=== PATIENT | female | born 1960 | race Two or more races ===

== ENCOUNTER 2024-05-13 13:09 | Outpatient (REF) | payer MEDICAID, SELFPAY ==
[2024-05-13 14:03] LABS: MANUAL DIFF FLAG NO
[2024-05-13 14:09] LABS: Venous Blood Gas Refer to POC result
[2024-05-13 14:10] LABS: VBG Base Excess 3.6 mmol/L; VBG HCO3 28 mmol/L (22-26); VBG pCO2 44 mmHg; VBG pH 7.41 (7.32-7.43); VBG pO2 48 mmHg
[2024-05-13 14:17] LABS: Basophils Absolute Auto 0.1 X10*3/uL (0.0-0.2); Basophils Percent Auto 0.5 % (0-2); Eosinophils Absolute Auto 0.1 X10*3/uL (0.0-0.4); Eosinophils Percent Auto 0.9 % (0-4); Hematocrit 36.9 % (37.0-47.0); Hemoglobin 12.7 g/dl (12.0-16.0); Imm Gran Abs Auto 0.06 X10*3/uL (0.00-0.03); Imm Gran Pct Auto 0.7 % (0.0-0.4); Lymphocytes Absolute Auto 2.7 X10*3/uL (1.2-4.9); Lymphocytes Percent Auto 29.5 % (20-40); Mean Corpuscular HGB Conc 34.4 g/dl (31.0-35.0); Mean Corpuscular Hemoglobin 28.2 pg (27.0-33.0); Mean Platelet Volume 9.3 fL (9.4-12.3); Monocytes Absolute Auto 0.7 X10*3/uL (0.1-1.2); Monocytes Percent Auto 7.2 % (2-11); Neutrophils Absolute Auto 5.6 x10*3/uL (2.0-8.3); Neutrophils Percent Auto 61.2 % (45-73); Platelet Count 361 X10*3/uL (160-400); Red Cell Distribution Width 12.3 % (11.0-16.0); White Blood Count 9.2 X10*3/uL (4.8-10.8)
[2024-05-13 15:08] LABS: Erythrocyte Sedimentation Rate 36 MM/HR (0-20)
--- OUTSIDE RECORDS SUMMARY | 2024-05-13 15:52 | XMS_ITS | Clinical Summary ---
Author Organization [facility] [facility] Address [address] [place] [address] Care Team Providers Care Parts Department Supervisor Name Role Phone Unavailable Primary Care Provider [...] Adults 18 yrs or above (or HM Modifier)([facility]) 1979 Hepatitis C Virus Infection in Adolescents and Adults: Screening (or Modifier) ([facility]) 1979 SDWI Screening Reminder: Scarlett faustin for all adults ([facility]) 1979 Tobacco Smoking Cessation: i n Adults excluding Women: Behavioral and Pharmacotherapy Interventions ([facility]) 1979 DTaP/Tdap/Td Vaccines ([facility]) (1 - Tdap) 02/03/1980 Cervical Cancer Screenin 1-65 yrs of age (or Modifier) 1982 Cervical Cancer Screening: P ap every 3 yrs pts age 21-65 1982 Cervical Cancer: Pap Screeni ng with Modifier timing ([facility]) 1982 Cervical Cancer: hrHPV alone or with cotesting Pap for Pts 30-65yrs screening every 5yrs ([facility]) 1982 Colorectal Cancer Screening 45 -75 Yrs (or HM Modifier) 2006 Colorectal Cancer: FLEXIBLE SIGMOIDOSCOPY Screening every 5 yrs 2006 Colorectal Cancer: Fecal Immunochemical Test (FIT) Annually [facility] 2006 Colorectal Cancer: High-sens itivity gFOBT Screening Annually [facility] 2006 Colorectal Cancer: Stool Col oguard Screening every 3 yrs 2006 Colorectal Cancer:CT Colonog aura Screening every 5 yrs 2006 Lipid Screening: Every 5 yrs for Women aged 45+ (or HM Modifier) ([facility]) 2007 Breast Cancer: Screening Scarlett ually age 50-74 yrs (or HM Modifier)([facility]) 2011 Zoster/Shingles Vaccine Seri es Screening: Adults aged 18+ yrs (or HM Modifiers)([facility]) (1 of 2) 2011 Flu Vaccination: Yearly for ages 18mos through 64 years (or Modifier)([facility]) 10/15/2023 COVID-19 Vaccine Screening: Initial Series and Booster Status ([facility]) (2023- season) 2023 RSV Vaccines (1 - 1-dose 75+ series) 02/03/2036 Pneumococcal Vaccination Scr eening: Pts 0-19 & 19-64 yrs of age ([facility]) Aged Out No longer eligible based on patient's age to complete this topic Medical Devices Not on file
--- OUTSIDE RECORDS SUMMARY | 2024-05-13 15:53 | XMS_ITS | Patient Health Record ---
Author Organization [employer] [facility] [place] Address NIETODariela ORDO[address]EZ [address] , [place] [id number] Care Team Providers Care Licensing Officer Name Role Phone NEO JOHNSON Primary Care Provider [phone] DRA LON FLEMING Unavailable Allergies Allergen (clinical drug ingredient) Drug/Non Drug Allergy documented on EMR Reaction Allergy Type Onset Date Status Penicillin G Benzathine vomiting Drug Allergy 07/22/2022 Active Squid Oil SOB Drug Allergy 07/22/2022 Active Reason For Referral No Information Medications Medication SIG (Take, Route, Frequency, Duration) Notes Start Date End Date Status Zocor 20 MG 1 tablet in the evening Orally DAILY for 30 day(s) Active Singulair 10 MG 1 tablet in the evening Orally Once a day for 30 days Active Lisinopril 5 MG 1 tablet Orally Once a day for 30 day(s) 06/20/2021 Active dexAMETHasone 0.5 MG/5ML 10 ml Orally every 6 hrs for 7 days MIX WITH ZYNCOF 1:1. TAKE 10 ML PO Q6HRS. DISP: 180ML. 08/20/2021 Unknown Zinc 30 MG 1 tablet Orally Once a day for 10 days 04/16/2022 Active Albuterol Sulfate (2.5 MG/3ML) 0.083% 3 ml as needed Inhalation every 8 hrs for 30 days 05/26/2019 Active Cetirizine HCl 10 MG 1 tablet Orally Once a day for 10 days 08/02/2021 Active Famotidine 40 MG 1 tablet at bedtime Orally Once a day for 10 days 10/26/2020 Active Fluticasone Propionate 50 MCG/ACT 1 spray in each nostril Nasally Once a day for 7 days 10/26/2020 Unknown Xmfdvrsn-Yrxyigpsu-DX 3.5-53896-0 4 drops into affected ear Otic Three times a day for 7 days 04/16/2022 Unknown Immunizations Vaccine Route Administration Date Status Comme nts COVID-19 Pfizer Unknown 05/28/2020 Administered PACIENT E SEADMINISTRO 1RA DOSIS DEVACUNA PFIZER , CONTRA EL COVID 19 ,SEDIGITALIZA EVIDENCIA , DIRIZARRYRN [id number] Influenza (split), 3 yrs and above Unknown 11/20/2015 Pending Social History Tobacco Use: Social History Observation Description Date Details (start date - stop date) Never Smoker NA - NA Sex Assigned At : Social History Observation Description Sex Assigned At Female Tobacco Use/Smoking Question Answer Notes Are you a nonsmoker Alcohol Screen (Audit-C) Question Answer Notes Did you have a drink containing alcohol in the p ast year? No Points 0 Interpretation Negative Sexual History Question Answer Notes Had sex in the past 12 months (vaginal, oral, or anal)? Yes with Men only Use protection? No Prevention strategies discussed: Condoms Have you ever had a Sexually transmitted disease ? No Last menstrual period HISTERECTOMIA TOTAL Tobacco use other than smoking: Question Answer Notes Are you an other tobacco user? No Section Notes: Marisol DANIELSN [address] SAUL Akins N [address] -CHANDRAKANT RAY 78051. BRENDA MERINO 04/16/2022 0 7:22:56 PM BOT > -CHANDRAKANT RAY 23343. SAUL STALLINGS 54743 Katarzyna ATWOODN 45568 TRUCKING [employer]OR [facility] [address] RENEE STALLINGS [address] Katarzyna MONTANO [address] SAUL R N [address]21 SAUL R N 60474 SAUL R N 19163 SAUL R N [address]00 SA[place] R N 62067 SAUL R N [address]77 Marisol DANIELSN [address] [place] [address]. 09/09/2017 CHANDRAKANT Mistry [address] . BY Marisol MERINO RNRAIN BY Marisol DANIELSN BY Marisol DANIELSN BY Marisol DANIELSN BY Marisol DANIELSN Problems Problem Type SNOMED Code ICD Code Onset Dates Problem Status W/U Status Risk Notes Problem 57258109 Age-related osteoporosis without current pathological fracture (M81.0) Active confirmed Problem Abnormal findings on diagnostic imaging of breast (560049245) Other abnormal and inconclusive findings on diagnostic imaging of breast (R92.8) Active confirmed Problem Vitamin D deficiency (81106429) Vitamin D deficiency, unspecified (E55.9) Active confirmed Problem Disorder of bone (26552645) Disorder of bone, unspecified (M89.9) Active confirmed Problem Conjunctival hyperemia of left eye (503821121289616) Conjunctival hyperemia, left eye (H11.432) Active confirmed Problem 612810240 Mild intermitten t asthma with status asthmaticus (J45.22) Active confirmed Problem Lymphadenopathy (29881901) Enlarged lymph nodes, unspecified (R59.9) Active confirmed Problem 70923828 Anxiety (F41.9) Active confirmed Problem Memory impairment (609284232) Memory loss (R41.3) Active confirmed Problem Glaucoma (16346682) Glaucoma (H40.9) Active con firmed Problem 40356992 Bronchitis (J40) Active confirmed Problem 822672952 SOB (shortness o f breath) (R06.02) Active confirmed Problem 45442387 PTSD (post-traum atic stress disorder) (F43.10) Active confirmed Problem Generalized obesity (974801811) Obesity (BMI 30-39.9) (E66.9) Active confirmed Problem Mammographic breast density (582788774) Breast density (R92.2) Active confirmed Problem Acute bronchitis (22130265) Acute bronchitis (J20.9) Active confirmed Problem 79955272 Coagulopathy (D68.9) Active confirmed Problem 20841346 Benign hypertens andrae heart disease without congestive heart failure (I11.9) Active confirmed Problem 62907144 Heart palpitatio ns (R00.2) Active confirmed Problem 978731856 Abnormal mammogr am (R92.8) Active confirmed Problem Mammographic calcification of breast (219215542) Breast calcifications on mammogram (R92.1) Active confirmed Problem 14963267 Mass of right br east (N63) Active confirmed Problem 024638976 Overweight (BMI 25.0-29.9) (E66.3) Active confirmed Problem 87721050 Obstructive slee p apnea (G47.33) Active confirmed Problem Pain in eye (78413680) Left eye pain (H57.12) Active confirmed Problem 83635108 Sacral pain (M53.3) Active confirmed Problem 784512317 Mild intermitten t asthma without complication (J45.20) Active confirmed Problem 71898635 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) Active confirmed Problem 883640907 History of hysterectomy (Z90.710) Active confirmed Problem 655088674 Moderate persist ent asthma with acute exacerbation (J45.41) Active confirmed Problem Hypercholesterolemia (48810015) Hypercholesterolemia (E78.00) Active confirmed Problem 137454020 Oral phase dysph agia (R13.11) Active confirmed Problem 22985128065451078 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) Active confirmed Problem Hip DXA scan result osteopenic (090178578) 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) Active confirmed Problem 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) 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 Problem 975449029 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) Active confirmed Problem Requires vaccination (981743180) COVID-19 vaccine administered (Z23) Active confirmed Problem 761990349175480423 History of CO VID-19 (Z86.16) Active confirmed Problem 473401480 COVID (U07.1) Active confirmed Problem 054894911 Post COVID-19 condition, 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) Active confirmed Plan Of Treatment Pending Test Test Name Order Date DEXA Hip and Spine 11/29/2014 MAMMOGRAM, SCREENING 11/29/2014 MAMMOGRAM, SCREENING 01/02/2016 MRI : Breast, Bilateral 02/16/2015 Ultrasound : Breast(s), unilateral or bi lateral 02/16/2015 Ultrasound : Breast(s), unilateral or bi lateral 01/02/2016 LDL Cholesterol 04/07/2016 CORONAVIRUS DISEASE (COVID19- IGG/IGM) R APID TEST 09/29/2019 Future Test Test Name Order Date Ultrasound : Breasts, bilateral 10/07/19 17 X ray : Chest 09/09/2017 Insurance Providers Payer Name Payer Address Payer Phone Subscriber Number Group Number Insured Name Patient Relationship to Insured Coverage Start Date Coverage End Date [employer] [address] [address] [place], [place] [id number] DAWIT BEAUCHAMP Self - patient is the insured 1 [employer] [address] [address] [place], [place] [id number] ADWIT BEAUCHAMP Self - patient is the insured 5 Medical (General) History Medical History History ICD Code Person encountering health services to dorie nix on behalf of another person Z71.0 Encounter for examination and observatio n for unspecified reason Z04.9 Encounter for screening for osteoporosis Z13.820 Disorder of bone, unspecified M89.9 Encounter for general adult medical exam ination with abnormal findings Z00.01 Vitamin D deficiency, unspecified E55.9 Breast density R92.2 Breast calcifications on mammogram R92.1 Enlarged lymph nodes, unspecified R59.9 Bronchitis J40 Breast cancer screening Z12.39 Mild intermittent asthma without complic ation J45.20 Abnormal mammogram R92.8 Mass of right breast N63 Depression screening Z13.89 Other abnormal and inconclusive findings on diagnostic imaging of breast R92.8 History of carcinoma in situ of breast Z 86.000 Mild intermittent asthma with status ast hmaticus J45.22 Annual physical exam Z00.00 Other asthma J45.998 History of hysterectomy Z90.710 Coagulopathy D68.9 History of hysterectomy Z90.710 Sacral pain M53.3 Other screening breast examination Z12.3 9 Overweight (BMI 25.0-29.9) E66.3 Osteopenia of lumbar spine M85.88 Age-related osteoporosis without current pathological fracture M81.0 Dietary counseling Z71.3 Other specified counseling Z71.89 Laboratory examination Z01.89 Osteoporosis screening Z13.820 Hypercholesterolemia E78.00 Anxiety F41.9 PTSD (post-traumatic stress disorder) F4 3.10 Surgical History Surgery Date(Month/Year) RIGHT CHEST SIDE CARCINOMA BACK CARCINOMA X 2 LEFT ARM BYOPSY X CARCINOMA SECTION X 2 tonsillectomy cholecystectomy 06/2016 HYSTERECTOMY/REVISE VAGINA HYSTEROSCOPY, STERILIZATION GLAUCOMA CLOSE ANGLE ( LF ) 08/2018 GLAUCOMA CLOSE ANGLE ( RT) 10/2018 Hospitalization History Reason Date(Month/Year) BRONQUITIS 12/2015 KACEY SHELLEY X 2
--- OUTSIDE RECORDS SUMMARY | 2024-05-13 15:53 | XMS_ITS | Clinical Summary ---
Author Organization [facility] Address [phone] [address] [place] [address] Care Team Providers Care Florist Manager Name Role Phone Debra Lew MD Primary [...] Department Care Team Description 05/11/2024 Transcribe Orders [facility] [address] [place] [address] Dr Kumari [address] [place] [address] Rain Ramirez DNP Palpitations (Primary Dx) 04/11/2024 11:45 AM EST Office Visit [facility] Radha Chung[address]ady Dr Kumari [address] [place] [address] Ilya Collins DO Arrhythmia (Primary Dx); Palpitations; [...] Description 05/11/2024 Procedure Pass [facility] [address] [place] [address] 05/17/2024 3:15 PM EST Appointment Non-Invasive Cardiology [address] [place] [address] Rain Ramirez, MALU [address] [place] [address] Néstor German [address] [place] [address] 06/24/2024 1:00 PM EDT Office Visit [facility] [address] [place] [address] Rain Ramirez, MALU [address] [place] [address] Health Maintenance Due Date Last Done Comments [...] Medical Devices Not on file Care Teams Florist Manager Relationship Specialty Start Date End Date Debra Lew MD [address] [place] [address] [place] [phone] PCP - General Internal Medicine 04/11/24 Additional Source Comments The information contained in this document represents components of the legal health record. It is not the complete legal health record.[facility]
--- OUTSIDE RECORDS SUMMARY | 2024-05-13 15:53 | XMS_ITS | Encounter Summary ---
Author Organization [facility] Address [phone] [facility]ly [facility] [place] [address] Care Team Providers Care Steam Tender Name Role Phone Debra Lew MD Primary Care Provider Reason for Referral * - New Request Specialty Diagnoses / Procedures Referred By Luis arita Referred To Contact Diagnoses Palpitations Procedures Holter Monitor 48 Hours Rain Ramirez DNP [address] [place] [address] Email: [email or web address] Referral ID Status Reason Start Date Expiration Date V isits Requested Visits Authorized [id number] New Request 05/11/2024 1 1 Encounter Details Date Type Department Care Team (Latest Contact Info) Description 05/11/2024 Transcribe Orders [facility] [address] [place] [address] [facility] [address] [place] [address] Rain Ramirez DNP [address] [place] [address] Palpitations (Primary Dx) Social History Tobacco Use [...] Description 05/11/2024 Procedure Pass Non-Invasive Cardiology [address] [place] [address] 05/17/2024 3:15 PM EST Appointment Non-Invasive Cardiology [address] [place] [address] Rain Ramirez, [facility] [address] [place] [address] [email or web address] Néstor German [address] [place] [address] [email or web address] 06/24/2024 1:00 PM EDT Office Visit [facility] [address] [place] [address] Rain Ramirez, [address] [address] [email or web address] Scheduled Orders Name Type Priority Associated Diagnoses Orde r Schedule Holter Monitor 48 Hours Cardiac Monitors Routine Palpitations Expected: 05/11/2024, Expires: 08/08/2024 documented as of this encounter Visit Diagnoses Diagnosis Palpitations- Primary documented in this encounter Care Teams Steam Tender Relationship Specialty Start Date End Date Debra Lew MD [address] [place] [address] Dr [address]ari [address] [place] [phone] PCP - General Internal Medicine 04/11/24 documented as of this encounter Additional Source Comments The information contained in this document represents components of the legal health record. It is not the complete legal health record.[facility]
[2024-05-16 08:25] LABS: IgA 275 mg/dL (70-320); IgG 1489 mg/dL (600-1540); IgM 163 mg/dL (50-300)
[2024-05-16 20:43] LABS: Class Alternaria alternata 0; Class Aspergillus fumigatus 0; Class Bermuda Grass 0; Class Birch 0; Class Cat Dander 0; Class Cladosporium herbarum 0; Class Cockroach 0; Class Common Ragweed 0; Class Cottonwood 0; Class Derm. pterony 0; Class Dermatophagoides farinae 0; Class Dog Dander 0; Class Elm 0; Class Maple Box Elder 0; Class Mountain Cedar 0; Class Mouse Urine Protein 0; Class Mugwort 0; Class Oak 0; Class Penicillium crysogenum 0; Class Rough Pigweed 0; Class Sheep Sorrel 0; Class Sycamore 0; Class Timothy Grass 0; Class Walnut Tree 0; Class White Ash 0; Class White Mulberry 0; D001 IgE D pteronyssinus <0.10 kU/L; D002 - IgE D farinae <0.10 kU/L; E001 - IgE Cat Dander <0.10 kU/L; E005 - IgE Dog Dander <0.10 kU/L; E072-IgE Mouse Urine <0.10 kU/L; G002 IgE Bermuda Grass <0.10 kU/L; G006 - IgE Timothy Grass <0.10 kU/L; I006-IgE Cockroach, German <0.10 kU/L; Immunoglobulin E 4 kU/L (<OR=114); M001 IgE Penicillium chrysogen <0.10 kU/L; M002 - IgE Cladosporium herbar <0.10 kU/L; M003 - IgE Aspergillus fumigat <0.10 kU/L; M006 - IgE Alternaria alternat <0.10 kU/L; T001 IgE Maple/Box Elder <0.10 kU/L; T003 IgE Common Silver Birch <0.10 kU/L; T006 - IgE Cedar, Mountain <0.10 kU/L; T007 - IgE Oak, White <0.10 kU/L; T008 IgE Elm, American <0.10 kU/L; T010 - IgE Walnut <0.10 kU/L; T011 - IgE Maple Leaf Sycamore <0.10 kU/L; T014 - IgE Cottonwood <0.10 kU/L; T015 - IgE Ash, White <0.10 kU/L; T070 - IgE White Mulberry <0.10 kU/L; W001 - IgE Ragweed, Short <0.10 kU/L; W006 - IgE Mugwort <0.10 kU/L; W014 IgE Pigweed, Common <0.10 kU/L; W018 IgE Sheep Sorrel <0.10 kU/L
== END 2024-05-13 13:10 | disposition home or self-care (01) ==
LOC: HO.LAB 13:09
PROVIDERS: PCP Internal Medicine; Visit Provider Hospitalist
DX: J45.40 Moderate persistent asthma, uncomplicated (principal); G47.33 Obstructive sleep apnea (adult) (pediatric); R91.1 Solitary pulmonary nodule; T78.40XA Allergy, unspecified, initial encounter
CPT/HCPCS: 36415; 82784; 82785; 82803; 85025; 85652; 86003; 99202

== ENCOUNTER 2024-05-13 13:09 | Outpatient (AMB) | payer OTHER, SELFPAY ==
--- NOTE | 2024-05-13 13:14 | MHC.OFFVIS ---
Vital Signs 05/13/24 13:15 Height 4 ft 11 in Weight 149 lb 14.629 oz BMI 30.3 BP 118/64 Blood Pressure Location Rt brachial Position Sitting Pulse 83 Pulse Source Pulse Oximeter Pulse Oximetry (%) 97 Oxygen Delivery Method Room Air Intake Visit Reasons: copd/asthma Allergies Penicillins Allergy (Intermediate, Verified 05/13/24 13:21) Rash HPI Comments Details: The patient is here for pulmonary evaluation. The patient is a 64 year woman with a known history of ZHEN on CPAP in addition to asthma. Apparently she moved from [place] to [facility] recently now she is getting established. The patient has been diagnosed with sleep apnea for many years. She does have an eye bruits machine that she uses every night. The therapy has been affecting beneficial. Although she has not been able to get any supplies from [employer] because she is no longer active since she moved to the [facility]. She needs to get we diagnosed with a repeat sleep study in order to get her reactivated with the [employer]. The patient will have a home sleep study at this point. In the meantime she has had issues with her asthma. Ever since she moved to [facility] she is having hard time with worsening shortness of breath wheezing and requiring multiple urgent care visits. Typically she goes to an urgent care and will bring him worse close to her home. Back in March she was found to be significantly he is wheezing there and short of breath and they transferred her over to [facility] where she was evaluated and treated. She did not want to stays in therefore they discharged her. She continues on the Spiriva and she also has a nebulizer and albuterol medication. She is not on a combination inhaler this time. Her med sure she has tried them in the past. But will go ahead and maximize her respiratory therapy by changing her to Trelegy. The patient also has a rescue medication. In view of her multiple exacerbations will go ahead and request blood work to assess her triggers. Will assess her allergies in addition to her immune system. Will have her get pulmonary function studies and have her come back for further evaluation. When she returns she will bring her CPAP so I can download it and adjust it. [facility] Medical History (Updated 05/14/24 @ 09:31 by Chapin Sarah MD) ZHEN (obstructive sleep apnea) Asthma Allergies Review of Systems Const Denies fever(s) Eyes Reports as per HPI ENT Reports nasal congestion and Reports nasal discharge Card Denies chest pain and Reports dyspnea on exertion Resp Reports cough, Reports dyspnea on exertion and Reports wheezing GI Denies abdominal pain Musc Reports no additional complaints Skin/Breast Denies rash Neuro Reports no additional complaints Michel/Lymph Reports no additional complaints Aller/Immun Reports wheezing Physical Exam Vital Signs: Last Vital Signs Pulse 83 05/13/24 13:15 BP 118/64 05/13/24 13:15 Pulse Ox 97 05/13/24 13:15 Oxygen Delivery Method Room Air 05/13/24 13:15 BMI result Body Mass Index 30.3 Const General: comfortable HEENT Head: Yes normocephalic Neck Neck: Yes normal visual inspection Chest Chest palpation & inspection: normal inspection of the chest Resp Effort & Inspection: normal respiratory effort Auscultation: no wheezes and diminished lung sounds Cardio Heart sounds: S1 normal heart sound present and S2 normal heart sound present GI Palpation (GI): Soft to palpation Skin General skin exam: no rashes or lesions noted Extrem General: Yes no clubbing, cyanosis or edema Assessment & Plan Assessment & Plan (1) Asthma: Code(s): J45.909 - Unspecified asthma, uncomplicated Category: Medical Qualifiers: Asthma severity: moderate Asthma persistence: persistent Asthma complication type: uncomplicated Qualified Code(s): J45.40 - Moderate persistent asthma, uncomplicated (2) ZHEN (obstructive sleep apnea): Code(s): G47.33 - Obstructive sleep apnea (adult) (pediatric) Category: Medical Plan stop Spiriva Start Trelegy SOCORRO as needed Duoneb as needed Bloodwork / Allergy testing Continue APAP (ibreeze) Needs a repeat study to requalify and order supplies PFTs Home PSG F/U 2 months Orders: Orders Resp Allergy Profile Region I 05/13/24 J45.909 - Unspecified asthma, uncomplicated, R91.1 - Solitary pulmonary nodule, T78.40XA - Allergy, unspecified, initial encounter Venous Blood Gas 05/13/24 J45.909 - Unspecified asthma, uncomplicated, T78.40XA - Allergy, unspecified, initial encounter Complete Blood Count Auto Diff 05/13/24 J45.909 - Unspecified asthma, uncomplicated, T78.40XA - Allergy, unspecified, initial encounter Erythrocyte Sedimentation Rate 05/13/24 J45.909 - Unspecified asthma, uncomplicated, T78.40XA - Allergy, unspecified, initial encounter PFT pulmonary function test 05/13/24 G47.33 - Obstructive sleep apnea (adult) (pediatric), J45.909 - Unspecified asthma, uncomplicated Immunoglobulins,IgG IgA IgM 05/13/24 J45.909 - Unspecified asthma, uncomplicated, T78.40XA - Allergy, unspecified, initial encounter Immunoglobulin E 05/13/24 J45.909 - Unspecified asthma, uncomplicated, T78.40XA - Allergy, unspecified, initial encounter RT home sleep study 05/13/24 G47.33 - Obstructive sleep apnea (adult) (pediatric), J45.909 - Unspecified asthma, uncomplicated PFT pulmonary function test Today J45.40 - Moderate persistent asthma, uncomplicated Medications: New bqxgzpchghw-dztfiofbj-bjtlulgq 200-62.5-25 mcg (Trelegy Ellipta) 1 inh inhalation DAILY 30 days 60 ea 12RF ipratropium-albuterol 0.5 mg-3 mg(2.5 mg base)/3 mL 3 mL inhalation BID 30 days 180 mL 11RF J44.9 - Chronic obstructive pulmonary disease, unspecified Coding Level of Care Code New Pt Level 4 (72388) Diagnoses Moderate persistent asthma without complication J45.40 Asthma severity: moderate Asthma persistence: persistent Asthma complication type: uncomplicated ZHEN (obstructive sleep apnea) G47.33 Time Spent (min) 45
[2024-05-13 13:15] VITALS: BP 118/64; PULSE 83; O2SAT 97; BMI 30.3
--- OUTSIDE RECORDS SUMMARY | 2024-05-13 15:13 | XMS_ITS | Clinical Summary ---
Author Organization [facility] Address [phone] [address] [place] [address] Care Team Providers Care Gi Technician Name Role Phone Debra Lew MD Primary Care Provider Allergies Active Allergy Reactions Criticality Noted Date Comments Penicillins 04/11/2024 Medications Medication Sig Dispensed Refills Start Date End Date Status VENTOLIN HFA 90 mcg/actuation inhaler INHALE 2 PUFFS INTO THE LUNGS BY MOUTH FOUR TIMES DAILY 03/16/2024 Active REFRESH TEARS 0.5 % Drop INSTILL 1 DROP IN BOTH EYES FOUR TIMES A DAY 02/16/2024 Active montelukast (SINGULAIR) 10 mg tablet Take 1 tablet by mouth every morning. 01/20/2024 Active simvastatin (ZOCOR) 20 MG tablet Take 20 mg by mouth nightly at bedtime. at bedtime. 01/20/2024 Active SPIRIVA RESPIMAT 1.25 mcg/actuation Mist 2 INHALATIONS INHALE 2 PUFFS BY MOUTH DAILY 01/20/2024 Active triamcinolone acetonide 0.1 % cream PLEASE SEE ATTACHED FOR DETAILED DIRECTIONS 01/17/2024 Active dilTIAZem (CARDIZEM CD) 120 MG 24 hr capsule Take 2 capsules (240 mg total) by mouth daily. 90 capsule 3 04/11/2024 Active Active Problems Problem Noted Date Diagnosed Date Arrhythmia 04/11/2024 Assessment & Plan (04/11/2024 12:03 PM EST): She has at least 15% PVCs hopefully the diltiazem will have a beneficial effect on this Palpitations 04/11/2024 PVC's (premature ventricular contractions) 04/11 Assessment & Plan (04/11/2024 12:03 PM EST): As mentioned blood pressure is well-controlled am going to stop the lisinopril and substitute diltiazem to 40 a day we will repeat a 1 week MCOT monitor hopefully the number of her PVCs is gone down if it does not and it still shows a lot of them I will have her see our EP doctor Severe asthma 04/11/2024 Assessment & Plan (04/11/2024 12:03 PM EST): This is a reason why I am not starting metoprolol Encounters Date Type Department Care Team Description 05/11/2024 Transcribe Orders [facility] [address] [place] [address] [address] [place] [address] Rain Ramirez DNP Palpitations (Primary Dx) 04/11/2024 11:45 AM EST Office Visit [facility] Radha [address] [place] [address] Ilya Collins DO Arrhythmia (Primary Dx); Palpitations; PVC's (premature ventricular contractions); Severe persistent asthma without complication from Last 3 Months Social History Tobacco Use Types Packs/Day Years Used Date Smoking Tobacco: Never Smokeless Tobacco: Never Tobacco Cessation:Counseling Given: Not Answered Education Answer Date Recorded Are you interested in more education? Not on lang e 01/08/2024 Are you concerned about learning? Not on file 01/08/2024 No 01/08/2024 No 01/08/2024 Digital Access Answer Date Recorded No 01/08/2024 No 01/08/2024 Reliable internet access at home? Not on file 01/08/2024 Device with a working camera? Not on file Sex and Gender Information Value Date Recorded Sex Assigned at Not on file Gender Identity Not on file Sexual Orientation Not on file Last Filed Vital Signs Vital Sign Reading Time Taken Comments Blood Pressure 126/82 04/11/2024 11:45 AM EST Pulse 98 04/11/2024 11:45 AM EST Temperature - - Respiratory Rate - - Oxygen Saturation 98% 04/11/2024 11:45 AM EST Inhaled Oxygen Concentration - - Weight 67.1 kg (148 lb) 04/11/2024 11:45 AM EST Height 149.9 cm (4' 11 ) 04/11/2024 11:45 AM EST Body Mass Index 29.89 04/11/2024 11:45 AM EST Plan of Treatment Upcoming Encounters Date Type Department Care Team (Late st Contact Info) Description 05/11/2024 Procedure Pass Non-Invasive Cardiology [address] [place] [address] 05/17/2024 3:15 PM EST Appointment Non-Invasive Cardiology [address] [place] [address] Rain Ramirez, MALU [address] [place] [address] [address] [place] [address] 06/24/2024 1:00 PM EDT Office Visit [facility] [address] [place] [address] Rain Ramirez, MALU [address] [place] [address] Health Maintenance Due Date Last Done Comments Adult Td,Tdap Booster 1961 LIPID PANEL 1961 DEPRESSION SCREENING 1973 HEPATITIS B SCREENING 1979 HEPATITIS C SCREENING 1979 HIV ONE-TIME SCREENING (18-6 5 YEARS) 1979 PNEUMOCOCCAL VACCINES (50+ y ears) (1 of 2 - PCV) 02/03/1980 PAP SMEAR 1982 SCREENING FOR DIABETES 02/03/1996 MAMMOGRAM 2001 COLOGUARD 2006 COLONOSCOPY 2006 COLORECTAL CANCER SCREENING 2006 FIT TEST 2006 FOBT 2006 SIGMOIDOSCOPY 2006 VIRTUAL COLONOSCOPY 2006 ZOSTER VACCINES (1 of 2) 2011 RSV VACCINE (1 - Risk 60-74 years 1-dose series) 2021 INFLUENZA VACCINE (#1) 2023 COVID-19 VACCINE (2023-2 5 season) 2023 SMOKING STATUS SCREENING (On ce After 26 Yrs) Completed 04/11/2024 HEPATITIS A VACCINES Aged Out No long er eligible based on patient's age to complete this topic HEPATITIS B VACCINES Aged Out No long er eligible based on patient's age to complete this topic HIB VACCINES Aged Out No longer eligi ble based on patient's age to complete this topic MENINGOCOCCAL VACCINES (ACWY) Aged Out No longer eligible based on patient's age to complete this topic Medical Devices Not on file Care Teams Gi Technician Relationship Specialty Start Date End Date Debra Lew MD [address] [place] [address] [place] [phone] PCP - General Internal Medicine 04/11/24 Additional Source Comments The information contained in this document represents components of the legal health record. It is not the complete legal health record.[facility]
--- OUTSIDE RECORDS SUMMARY | 2024-05-13 15:13 | XMS_ITS | Encounter Summary ---
Author Organization [facility] Address [phone] [facility] [place] [address] Care Team Providers Care Gas Engine Performance Engineer Name Role Phone Debra Lew MD Primary Care Provider Reason for Referral * - New Request Specialty Diagnoses / Procedures Referred By Luis arita Referred To Contact Diagnoses Palpitations Procedures Holter Monitor 48 Hours Rain Ramirez DNP [address] [place] [address] Email: [email or web address] Referral ID Status Reason Start Date Expiration Date V isits Requested Visits Authorized [id number] New Request 05/11/2024 1 1 Encounter Details Date Type Department Care Team (Latest Contact Info) Description 05/11/2024 Transcribe Orders [facility] [address] [place] [address] [facility] [address] [place] [address] Rain Ramirez DNP [address] [place] [address] Palpitations (Primary Dx) Social History Tobacco Use Types Packs/Day Years Used Date Smoking Tobacco: Never Smokeless Tobacco: Never Education Answer Date Recorded Are you interested [...] on file Sexual Orientation Not on file documented as of this encounter Plan of Treatment Upcoming Encounters Date Type Department Care Team (Late st Contact Info) Description 05/11/2024 Procedure Pass Non-Invasive Cardiology [address] [place] [address] 05/17/2024 3:15 PM EST Appointment Non-Invasive Cardiology [address] [place] [address] Rain [facility], [facility] [address] [place] [address] Néstor German [address] [place] [address] 06/24/2024 1:00 PM EDT Office Visit [facility] [address] [place] [address] Rain Ramirez, [address] [address] Scheduled Orders Name Type Priority Associated Diagnoses Orde r Schedule Holter Monitor 48 Hours Cardiac Monitors Routine Palpitations Expected: 05/11/2024, Expires: 08/08/2024 documented as of this encounter Visit Diagnoses Diagnosis Palpitations- Primary documented in this encounter Care Teams Gas Engine Performance Engineer Relationship Specialty Start Date End Date Debra Lew MD [address] [place] [address] Dr [address] [place] [phone] PCP - General Internal Medicine 04/11/24 documented as of this encounter Additional Source Comments The information contained in this document represents components of the legal health record. It is not the complete legal health record.[facility]
--- OUTSIDE RECORDS SUMMARY | 2024-05-13 15:13 | XMS_ITS ---
Author Organization [facility] Address EMILIA ORDO[address]Z [address] [facility] [facility] [place] [id number] Care Team Providers Care Pack Worker Name Role Phone NEO JOHNSON Primary Care Provider DRA LON FLEMING Unavailable [phone] REASON FOR VISIT DENTAL Social History Sex Assigned At : Social History Observation Description Sex Assigned At Female Encounters Encounter Location Date Provider Diagnosis [facility] Zak ORDOÑEZ [address] [facility] [facility] [place] [id number] 07/20/2023 LON LAWRENCE Plan Of Treatment No Information Progress Notes * DAWIT BEAUCHAMPDOB:1 04/04/1959 (64 yo F)Acc No.[id number]:07/20/2023 Patient:?Moni BEAUCHAMP Provider:Dejah Lawrence :1960???Age:63 Y???Sex:Female D ate:07/20/2023 Address:[facility] [address] [place], [place] Pcp:NEO STOVALL Subjective: * Chief Complaints: * ???1. DENTAL. * Medical History:? Objective: Assessment: Plan: * Treatment: * Billing Information: * Visit Code:? * Procedure Codes:? * Electronic signature of DRA LON LAWRENCE , DMD on 05/13/2024 at 04:13 PM BOT Sign off status: Pending Visit Status:?CANCPHONE (Can celled over phone) * Provider:?Dra. Lon Lawrence Date:?0 07/20/2023 Generated for Alli westfall/Christos/eTransmitting on:?05/13/2024 04:13 PM BOT
--- OUTSIDE RECORDS SUMMARY | 2024-05-13 15:13 | XMS_ITS | Clinical Summary ---
Author Organization [facility] lin Address [address] [place] [address] Care Team Providers Care Metal Drilling Machine Operator Name Role Phone Unavailable Primary Care Provider Unavailabl e Social History Tobacco Use Types Packs/Day Years Used Date Smoking Tobacco: Never Assessed Comments Unknown Sex and Gender Information Value Date Recorded Sex Assigned at Not on file Legal Sex Female 1:02 PM EDT Gender Identity Not on file Sexual Orientation Not on file Plan of Treatment Health Maintenance Due Date Last Done Comments Colorectal Cancer: COLONOSCO PY Screening every 10 yrs (or Modifier) 1961 Depression: Screening Annual ly using PHQ-2/9 in Adults 18 yrs or above (or HM Modifier)([facility]) 1979 Hepatitis C Virus Infection in Adolescents and Adults: Screening (or Modifier) ([facility]) 1979 SDAR Screening Reminder: Scarlett faustin for all adults ([facility]) 1979 Tobacco Smoking Cessation: i n Adults excluding Women: Behavioral and Pharmacotherapy Interventions ([facility]) 1979 DTaP/Tdap/Td Vaccines ([facility]) (1 - Tdap) 02/03/1980 Cervical Cancer Screenin 1-65 yrs of age (or Modifier) 1982 Cervical Cancer Screening: P ap every 3 yrs pts age 21-65 1982 Cervical Cancer: Pap Screeni ng with Modifier timing ([facility]) 1982 Cervical Cancer: hrHPV alone or with cotesting Pap for Pts 30-65yrs screening every 5yrs ([facility]) 1982 Colorectal Cancer Screening 45 -75 Yrs (or HM Modifier) 2006 Colorectal Cancer: FLEXIBLE SIGMOIDOSCOPY Screening every 5 yrs 2006 Colorectal Cancer: Fecal Immunochemical Test (FIT) Annually [facility] 2006 Colorectal Cancer: High-sens itivity gFOBT Screening Annually [facility] 2006 Colorectal Cancer: Stool Col oguard Screening every 3 yrs 2006 Colorectal Cancer:CT Colonog aura Screening every 5 yrs 2006 Lipid Screening: Every 5 yrs for Women aged 45+ (or HM Modifier) ([facility]) 2007 Breast Cancer: Screening Scarlett ually age 50-74 yrs (or HM Modifier)([facility]) 2011 Zoster/Shingles Vaccine Seri es Screening: Adults aged 18+ yrs (or HM Modifiers)([facility]) (1 of 2) 2011 Flu Vaccination: Yearly for ages 18mos through 64 years (or Modifier)([facility]) 10/15/2023 COVID-19 Vaccine Screening: Initial Series and Booster Status ([facility]) (2023- season) 2023 RSV Vaccines (1 - 1-dose 75+ series) 02/03/2036 Pneumococcal Vaccination Scr eening: Pts 0-19 & 19-64 yrs of age ([facility]) Aged Out No longer eligible based on patient's age to complete this topic Medical Devices Not on file
== END 2024-05-13 13:41 | disposition home or self-care (01) ==
PROVIDERS: PCP Internal Medicine; Visit Provider Hospitalist
DX: J45.40 Moderate persistent asthma, uncomplicated (principal); G47.33 Obstructive sleep apnea (adult) (pediatric)
CPT/HCPCS: 99204

== ENCOUNTER 2024-06-17 13:56 | Outpatient (REF) | payer OTHER, SELFPAY ==
--- NOTE | 2024-06-17 14:02 | PFT_ITS ---
Flows: FEV1: 92 % of predicted at 1.86 L FVC: 89 % of predicted at 2.28 L FEV1/FVC: 82 % Bronchodilator response: Absent Volumes: Total lung capacity: 89 % of predicted at 3.77 L Residual volume: 85 % of predicted at 1.29 L Slow vital capacity: 90 % of predicted at 2.48 L Expiratory reserve volume: 52 % of predicted at 0.32 L Diffusion capacity: Normal Impression: No obstructive or restrictive ventilatory defect. No bronchodilator response. Decreased expiratory reserve volume suggests extrathoracic restriction likely secondary to abdominal obesity. MTDD
[2024-06-17 14:43] VITALS: PULSE 81; O2SAT 97
--- OUTSIDE RECORDS SUMMARY | 2024-06-17 15:42 | XMS_ITS ---
Author Organization [facility] Address [address] [place], [place] [id number] Care Team Providers Care Community Organization Aide Name Role Phone NEO JOHNSON Primary Care Provider DRA LON FLEMING REASON FOR VISIT DENTAL Social History Sex Assigned At : Social History Observation Description Sex Assigned At Female Encounters Encounter Location Date Provider Diagnosis [facility] [address] [place], [place] [id number] 07/20/2023 LON LAWRENCE Plan Of Treatment No Information Progress Notes * DAWIT BEAUCHAMPDOB:1 04/04/1959 (64 yo F)Acc No.[id number]:07/20/2023 Patient:?Moni BEAUCHAMP Provider:Dejah Lawrence :1960???Age:63 Y???Sex:Female D ate:07/20/2023 Address:[address] [place], [place] Pcp:NEO STOVALL Subjective: * Chief Complaints: * ???1. DENTAL. * Medical History:? Objective: Assessment: Plan: * Treatment: * Billing Information: * Visit Code:? * Procedure Codes:? * Electronic signature of DRA LON LAWRENCE , DMD on 06/17/2024 at 03:41 PM BOT Sign off status: Pending Visit Status:?CANCPHONE (Can celled over phone) * Provider:?Dra. Lon Lawrence Date:?0 07/20/2023 Generated for Alli westfall/Christos/eTransmitting on:?06/17/2024 03:41 PM BOT
--- OUTSIDE RECORDS SUMMARY | 2024-06-17 15:42 | XMS_ITS | Clinical Summary ---
Author Organization [facility] Address [address] [place] [address] Phone Care Team Providers Care Gas Pumping Station Supervisor Name Role Phone Debra Lew MD Primary [...] Encounters Date Type Department Care Team Description 06/03/2024 Orders Only [facility] [address] [place] [address] Rain Ramirez DNP 05/11/2024 Transcribe Orders [facility] [place] [address] Rain Ramirez DNP Palpitations (Primary Dx) 04/11/2024 11:45 AM EST Office Visit [facility] [place] [place] [address] Ilya Collins DO Arrhythmia (Primary Dx); Palpitations; [...] Care Team (Late st Contact Info) Description 06/24/2024 1:30 PM EDT Office Visit [facility] [address] [place] [address] [address] [place] [address] Rain Ramirez, MALU [address] [place] [address] Jigna Delgado, MALU [address] [facility], [address] [place] [address] Néstor German [address] [place] [address] Health Maintenance Due Date Last Done Comments Adult Td,Tdap Booster 1960 LIPID PANEL 1961 DEPRESSION SCREENING 1973 HEPATITIS C SCREENING 1979 HIV ONE-TIME SCREENING [...] 2021 INFLUENZA VACCINE (#1) 2023 COVID-19 VACCINE ( - 2023-2 5 season) 2023 SMOKING STATUS SCREENING (On [...] this topic Medical Devices Not on file Procedures Procedure Name Priority Date/Time Associated Diagnosis Comments OUTSIDE MONITOR Routine 06/03/2024 9:23 AM EDT from Last 3 Months Results * Outside Monitor Report Only (06/03/2024 9:23 AM EDT) Rain Guidry Ashley DNP CV CARDIAC SERVI STEFF ORDERABLES from Last 3 Months Care Teams Gas Pumping Station Supervisor Relationship Specialty Start Date End Date Debra Lew MD [address] [place] [address] Dr Dias, [place] [phone] PCP - General Internal Medicine 04/11/24 Additional Source Comments The information contained in this document represents components of the legal health record. It is not the complete legal health record.[facility]
--- OUTSIDE RECORDS SUMMARY | 2024-06-17 15:42 | XMS_ITS | Encounter Summary ---
Author Organization [facility] Address [address] [place] [address] [place] [address] Phone Care Team Providers Care Bulk Plant Agent Name Role Phone Debra Lew MD Primary Care Provider Encounter Details Date Type Department Care Team (Late st Contact Info) Description 06/03/2024 Orders Only [facility] Radha Kumari [address] [place] [address] Rain Ramirez DNP [address] [place] [phone] [email or web address] Social History Tobacco Use Types Packs/Day Years [...] Description 06/24/2024 1:30 PM EDT Office Visit [facility] Radha Kumari [address] [place] [address] Rain Ramirez DNP [address] [place] [address] Jigna Delgado DNP [address] [facility], [address] [place] [address] Néstor German [address] [place] [address] [email or web address] documented as of this encounter Procedures Procedure Name Priority Date/Time Associated Diagnosis Comments OUTSIDE MONITOR Routine 06/03/2024 9:23 AM EDT documented in this encounter Results * Outside Monitor Report Only (06/03/2024 9:23 AM EDT) Rain Guidry Ashley TORIBIO CV CARDIAC SERVI STEFF ORDERABLES documented in this encounter Visit Diagnoses Not on filedocumented in this encounter Care Teams Bulk Plant Agent Relationship Specialty Start Date End Date Debra Lew MD [address] [place] [address] [place] [phone] PCP - General Internal Medicine 04/11/24 documented as of this encounter Additional Source Comments The information contained in this document represents components of the legal health record. It is not the complete legal health record.[facility]
--- OUTSIDE RECORDS SUMMARY | 2024-06-17 15:42 | XMS_ITS | Patient Health Record ---
Author Organization [facility] [place] Address [address], [place] [address] Care Team Providers Care Bakery Chef Name Role Phone NEO JOHNSON Primary Care Provider [phone] DRA LON FLEMING Unavailable [phone] Allergies Allergen (clinical drug ingredient) Drug/Non Drug [...] a day for 7 days 10/26/2020 Unknown Ddutypqd-Cycqhkahy-XU 3.5-60591-3 4 drops into affected ear Otic Three times a day for 7 days 04/16/2022 Unknown Immunizations Vaccine Route Administration Date Status Comme nts COVID-19 Pfizer Unknown 05/28/2020 Administered PACIENT E SEADMINISTRO 1RA DOSIS DEVACUNA PFIZER , CONTRA EL COVID 19 ,SEDIGITALIZA EVIDENCIA , DIRIZARRYRN [id number] Influenza (split), 3 yrs and above Unknown [...] an other tobacco user? No Section Notes: BY Marisol HUGHES R N 90549 SAUL Akins N 50120 -CHANDRAKANT RAY 11104. -CHANDRAKANT RAY 48672. SAUL STALLINGS 05458 RENEE STALLINGS 81233 BRENDA MERINO 04/16/2022 0 7:22:56 PM BOT > Katarzyna STOVALL BSN 65941 Katarzyna ATWOODN 99560 SAUL Virgen 11514 ON SITE CONSTRUCTION SUPERINTENDENT [facility] [address] SAUL R N 89437 SAUL R N 57825 SAUL R N 84575 SAUL R N 01298 Marisol DANIELSN 18[address] [place] [address]. 09/09/2017 CHANDRAKANT [place] [address] . Marisol DANIELSN 30964 BY Marisol MERINO RNBSN BY Marisol MERINO RNRAIN BY Marisol MERINO RNBSN BY Marisol MERINO RNRAIN Problems Problem Type SNOMED Code ICD Code Onset Dates Problem Status W/U Status Risk Notes Problem 16014032 Age-related osteoporosis without current pathological fracture (M81.0) Active confirmed Problem Abnormal findings on diagnostic imaging of breast (915488960) Other abnormal and inconclusive findings on diagnostic imaging of breast (R92.8) Active confirmed Problem Vitamin D deficiency (92524863) Vitamin D deficiency, unspecified (E55.9) Active confirmed Problem Disorder of bone (53383462) Disorder of bone, unspecified (M89.9) Active confirmed Problem Conjunctival hyperemia of left eye (907567743722866) Conjunctival hyperemia, left eye (H11.432) Active confirmed Problem 885956299 Mild intermitten t asthma with status asthmaticus (J45.22) Active confirmed Problem Lymphadenopathy (18739096) Enlarged lymph nodes, unspecified (R59.9) Active confirmed Problem 67827775 Anxiety (F41.9) Active confirmed Problem Memory impairment (298152739) Memory loss (R41.3) Active confirmed Problem Glaucoma (19426121) Glaucoma (H40.9) Active con firmed Problem 44250871 Bronchitis (J40) Active confirmed Problem 420014422 SOB (shortness o f breath) (R06.02) Active confirmed Problem 56128705 PTSD (post-traum atic stress disorder) (F43.10) Active confirmed Problem Generalized obesity (624791235) Obesity (BMI 30-39.9) (E66.9) Active confirmed Problem Mammographic breast density (484294501) Breast density (R92.2) Active confirmed Problem Acute bronchitis (20081319) Acute bronchitis (J20.9) Active confirmed Problem 65724351 Coagulopathy (D68.9) Active confirmed Problem 02421557 Benign hypertens andrae heart disease without congestive heart failure (I11.9) Active confirmed Problem 56100338 Heart palpitatio ns (R00.2) Active confirmed Problem 883889798 Abnormal mammogr am (R92.8) Active confirmed Problem Mammographic calcification of breast (702446311) Breast calcifications on mammogram (R92.1) Active confirmed Problem 37301007 Mass of right br east (N63) Active confirmed Problem 126553853 Overweight (BMI 25.0-29.9) (E66.3) Active confirmed Problem 24005638 Obstructive slee p apnea (G47.33) Active confirmed Problem Pain in eye (99931542) Left eye pain (H57.12) Active confirmed Problem 83585555 Sacral pain (M53.3) Active confirmed Problem 700600474 Mild intermitten t asthma without complication (J45.20) Active confirmed Problem 72615927 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) Active confirmed Problem 108209188 History of hysterectomy (Z90.710) Active confirmed Problem 785211278 Moderate persist ent asthma with acute exacerbation (J45.41) Active confirmed Problem Hypercholesterolemia (97029544) Hypercholesterolemia (E78.00) Active confirmed Problem 782474903 Oral phase dysph agia (R13.11) Active confirmed Problem 00047900193875275 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) Active confirmed Problem Hip DXA scan result osteopenic (293890788) 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) Active confirmed Problem Chronic obstructive pulmonary disease (04898085) 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 Problem 184858094 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
== END 2024-06-17 13:57 | disposition home or self-care (01) ==
LOC: HO.RESP 13:56
PROVIDERS: PCP Internal Medicine; Visit Provider Hospitalist
DX: J45.40 Moderate persistent asthma, uncomplicated (principal); G47.33 Obstructive sleep apnea (adult) (pediatric)
CPT/HCPCS: 94010; 94640; 94727; 94729

== ENCOUNTER → 2024-06-17 14:02 | Outpatient (BNV) | payer OTHER, SELFPAY | PROVIDERS: PCP Internal Medicine; Visit Provider Internal Medicine Pulmonary Disease | DX: J45.909 Unspecified asthma, uncomplicated (principal) | CPT/HCPCS: 94060; 94727; 94729 ==

== ENCOUNTER → 2024-07-18 09:51 | Outpatient (REF) | payer OTHER, SELFPAY ==
--- OUTSIDE RECORDS SUMMARY | 2024-07-18 10:57 | XMS_ITS | Clinical Summary ---
Author Organization [facility] Address [address] [place] [address] Care Team Providers Care Top Inventory Control Executive Name Role Phone Unavailable Primary Care Provider [...] Adults 18 yrs or above (or HM Modifier)([facility]) 1961 Hepatitis C Virus Infection in Adolescents and Adults: Screening (or Modifier) ([facility]) 1979 SDLA Screening Reminder: Scarlett faustin for all adults ([facility]) 1979 Tobacco Smoking Cessation: i n Adults excluding Women: Behavioral and Pharmacotherapy Interventions ([facility]) 1979 DTaP/Tdap/Td Vaccines ([facility]) (1 - Tdap) 02/03/1980 Cervical Cancer Screenin 1-65 yrs of age (or Modifier) 1982 Cervical Cancer Screening: P ap every 3 yrs pts age 21-65 1982 Cervical Cancer: Pap Screeni ng with Modifier timing ([facility]) 1982 Cervical Cancer: hrHPV alone or with cotesting Pap for Pts 30-65yrs screening every 5yrs ([facility]) 1982 Colorectal Cancer Screening 45 -75 Yrs (or HM Modifier ) 2006 Colorectal Cancer: FLEXIBLE SIGMOIDOSCOPY Screening every 5 yrs 2006 Colorectal Cancer: Fecal Imm unochemical Test (FIT) Annually [facility] 2006 Colorectal Cancer: High-sens itivity gFOBT Screening Annually [facility] 2006 Colorectal Cancer: Stool Col oguard Screening every 3 yrs 2006 Colorectal Cancer:CT Colonography Screening every 5 yr s 2006 Lipid Screening: Every 5 yrs for Women aged 45+ (or HM Modifier) ([facility]) 2007 Breast Cancer: Screening Scarlett ually age 50-74 yrs (or HM Modifier)([facility]) 2011 Pneumococcal Vaccination Scr eening: Patients 50+ yrs of age ([facility]) (1 of 1 - PCV) 2011 Zoster/Shingles Vaccine Seri es Screening: Adults aged 18+ yrs (or HM Modifiers)([facility]) (1 of 2) 2011 COVID-19 Vaccine Screening: Initial Series and Booster Status ([facility]) (2023- season) 2023 Flu Vaccination: Yearly for ages 18mos through 64 years (or Modifier)([facility]) 10/14/2024 RSV Vaccines (1 - 1-dose 75+ series) 02/03/2036 Medical Devices Not on file
--- OUTSIDE RECORDS SUMMARY | 2024-07-18 10:58 | XMS_ITS | Patient Health Record ---
Author Organization [facility] Address [address], [place] [address] Care Team Providers Care Lieutenant/Deputy Name Role Phone NEO JOHNSON Primary Care Provider DRA LON FLEMING Unavailable Allergies Allergen (clinical [...] a day for 7 days 10/26/2020 Unknown Gjgwtxst-Qvxmeafbv-IL 3.5-69919-6 4 drops into affected ear Otic Three times a day for 7 days 04/16/2022 Unknown Immunizations Vaccine Route Administration Date Status Comme nts COVID-19 Pfizer Unknown 05/28/2020 Administered PACIENT E SEADMINISTRO 1RA DOSIS DEVACUNA PFIZER , CONTRA EL COVID 19 ,SEDIGITALIZA EVIDENCIA , DIRIZARRYRN 158907 Influenza (split), 3 yrs and above Unknown [...] tobacco user? No Section Notes: BY Marisol MERINO RNRAIN BY Marisol DIOXN -CHANDRAKANT RAY 96456. -CHANDRAKANT RAY 79620. SAUL STALLINGS 55704 BRENDA MERINO 04/16/2022 0 7:22:56 PM BOT > Katarzyna STOVALL BSN 66645 RENEE STALLINGS 23448 Katarzyna STOVALL BSN 38972 COUNTRY SALES MANAGER [facility] 88353 DIRIZARRY R N 65466 DIRIZARRY R N 90661 DIRIZARRY R N 36653 DIRIZARRY R N 55366 DIRIZARRY R N 76353 DIRIZARRY R N 52155 DIRIZARRY R N [address]993 09/09/2017 CHANDRAKANT Mistry [address] . Marisol DANIELSN [address] [place] [address]. BY Marisol MERINO RNBSN Marisol MERINO RNRAIN 69666 BY Marisol MERINO RNBSN BY Marisol MERINO RNBSN Problems Problem Type SNOMED Code ICD Code Onset Dates Problem Status W/U Status Risk Notes Problem 80395927 Age-related osteoporosis without current pathological fracture (M81.0) Active confirmed Problem Abnormal findings on diagnostic imaging of breast (327030450) Other abnormal and inconclusive findings on diagnostic imaging of breast (R92.8) Active confirmed Problem Vitamin D deficiency (64593403) Vitamin D deficiency, unspecified (E55.9) Active confirmed Problem Disorder of bone (48860940) Disorder of bone, unspecified (M89.9) Active confirmed Problem 04014098 Anxiety (F41.9) Active confirmed Problem Memory impairment (239194794) Memory loss (R41.3) Active confirmed Problem 005553442 Mild intermitten t asthma without complication (J45.20) Active confirmed Problem 52665411 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) Active confirmed Problem 739055828 History of hysterectomy (Z90.710) Active confirmed Problem 674651846 Moderate persist ent asthma with acute exacerbation (J45.41) Active confirmed Problem Hypercholesterolemia (03530492) Hypercholesterolemia (E78.00) Active confirmed Problem 458523073 Oral phase dysph agia (R13.11) Active confirmed Problem 16454884064249662 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) Active confirmed Problem Hip DXA scan result osteopenic (958912937) 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) Active confirmed Problem 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 Problem 456354248 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) Active confirmed Problem Requires vaccination (424276893) COVID-19 vaccine administered (Z23) Active confirmed Problem 716151101011351159 History of CO VID-19 (Z86.16) Active confirmed Problem 081211265 COVID (U07.1) Active confirmed Problem 51460412 Sacral pain (M53.3) Active confirmed Problem Pain in eye (60893986) Left eye pain (H57.12) Active confirmed Problem 719451709 Overweight (BMI 25.0-29.9) (E66.3) Active confirmed Problem 91452202 Mass of right br east (N63) Active confirmed Problem Mammographic calcification of breast (910774660) Breast calcifications on mammogram (R92.1) Active confirmed Problem 513847096 Abnormal mammogr am (R92.8) Active confirmed Problem 51019696 Heart palpitatio ns (R00.2) Active confirmed Problem 09035944 Coagulopathy (D68.9) Active confirmed Problem 481118111 SOB (shortness o f breath) (R06.02) Active confirmed Problem Glaucoma (29728787) Glaucoma (H40.9) Active con firmed Problem Lymphadenopathy (23120341) Enlarged lymph nodes, unspecified (R59.9) Active confirmed Problem 067568056 Mild intermitten t asthma with status asthmaticus (J45.22) Active confirmed Problem Conjunctival hyperemia of left eye (828461138088229) Conjunctival hyperemia, left eye (H11.432) Active confirmed Problem 335848984 Post COVID-19 condition, 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) Active confirmed Problem 71328815 Obstructive slee p apnea (G47.33) Active confirmed Problem 13361282 Benign hypertens andrae heart disease without congestive heart failure (I11.9) Active confirmed Problem Acute bronchitis (32865898) Acute bronchitis (J20.9) Active confirmed Problem Mammographic breast density (433294575) Breast density (R92.2) Active confirmed Problem Generalized obesity (029672333) Obesity (BMI 30-39.9) (E66.9) Active confirmed Problem 98617918 PTSD (post-traum atic stress disorder) (F43.10) Active confirmed Problem 54505829 Bronchitis (J40) Active confirmed Plan Of Treatment Pending Test [...] Coverage End Date [employer] [address] [address] [place], [place] [id number] DAWIT BEAUCHAMP Self - patient is the insured 1 [employer] [address] [address] [place], [place] [id number] [id number] DAWIT BEAUCHAMP Self - patient is [...]
--- OUTSIDE RECORDS SUMMARY | 2024-07-18 10:58 | XMS_ITS | Clinical Summary ---
Author Organization [facility] Address [address] [facility] [address] [facility] [address] [place] [address] Phone Care Team Providers Care Gastroenterologist Name Role Phone Debra Lew MD Primary Care Provider Allergies Active Allergy Reactions Criticality Noted Date Comments Penicillins 04/11/2024 Medications Medication Sig Dispensed Refills Start Date End Date Status REFRESH TEARS 0.5 % Drop INSTILL 1 DROP IN BOTH EYES FOUR TIMES A DAY 4 Active montelukast (SINGULAIR) 10 mg tablet Take 1 tablet by mouth every morning. 4 Active simvastatin (ZOCOR) 20 MG tablet Take 20 mg by mouth nightly at bedtime. at bedtime. 4 Active triamcinolone acetonide 0.1 % cream PLEASE SEE ATTACHED FOR DETAILED DIRECTIONS 4 Active dilTIAZem (CARDIZEM CD) 120 MG 24 hr capsule Take 2 capsules (240 mg total) by mouth daily. 90 capsule 3 5 Active albuterol 90 mcg/actuation inhaler Inhale 2 puffs into the lungs every 6 (six) hours as needed for wheezing. Active VENTOLIN HFA 90 mcg/actuation inhaler INHALE 2 PUFFS INTO THE LUNGS BY MOUTH FOUR TIMES DAILY 5 06/25/19 25 Discontinued SPIRIVA RESPIMAT 1.25 mcg/actuation Mist 2 INHALATIONS INHALE 2 PUFFS BY MOUTH DAILY 4 06/25/19 25 Discontinued(No longer taking) Active Problems Problem Noted Date Diagnosed Date Arrhythmia 04/11/2024 Assessment & Plan (04/11/2024 12:03 PM EST): She has at least 15% PVCs hopefully the diltiazem will have a beneficial effect on this Palpitations 04/11/2024 Assessment & Plan (06/24/2024 1:31 PM EDT): She continues to report some palpitations over the past couple of days she has noticed an increase in them. She did wear Holter monitor for approximately 48 hours which showed no arrhythmias, or early beats. She did have some symptomatic events that occurred during her monitor time however this correlated with sinus rhythm. She has taken diltiazem 240 mg daily which she will continue without change. I did ask her to let us know if she has an increase in palpitations over the next several weeks to months and we could repeat a monitor for a longer duration of up to 30 days. PVC's (premature ventricular contractions) 04/11 Assessment & Plan (06/24/2024 1:31 PM EDT): Most recent monitor did not reveal any PVCs. Assessment & Plan (04/11/2024 12:03 PM EST): [...] Encounters Date Type Department Care Team Description 06/24/2024 1:30 PM EDT Office Visit [facility] [address], [address] [place] [address] Rain Ramirez, Jigna Martinez DNP Verea, Armando Palpitations (Primary Dx); PVC's (premature ventricular contractions) 06/03/2024 Orders Only [facility] [address], [address] [place] [address] Rain Ramirez DNP 05/11/2024 Transcribe Orders [facility] [address], [address] [place] [address] Rain Ramirez DNP Palpitations (Primary Dx) from Last 3 Months Social History Tobacco [...] Sign Reading Time Taken Comments Blood Pressure 118/62 06/24/2024 1:17 PM EDT Pulse 92 06/24/2024 1:17 PM EDT Temperature - - Respiratory Rate - - Oxygen Saturation 99% 06/24/2024 1:17 PM EDT Inhaled Oxygen Concentration - - Weight 67.1 kg (148 lb) 06/24/2024 1:17 PM EDT Height 149.9 cm (4' 11 ) 06/24/2024 1:17 PM EDT Body Mass Index 29.89 06/24/2024 1:17 PM EDT Plan of Treatment Upcoming Encounters Date Type Department Care Team (Late st Contact Info) Description 12/23/2024 2:30 PM EDT Office Visit [facility] [address], [address] [place] [address] Jigna Delgado DNP [address] [facility], [address] [place] [address] Health Maintenance Due Date Last Done Comments [...] - Risk 60-74 years 1-dose series) 2021 COVID-19 VACCINE (1 - 2023-2 5 season) 2023 SMOKING STATUS SCREENING (On ce After 26 Yrs) Completed 06/24/2024 HEPATITIS A VACCINES Aged Out No long [...] ORDERABLES from Last 3 Months Care Teams Gastroenterologist Relationship Specialty Start Date End Date Debra Lew MD [address] [place] [address] Dr Dias, CHRISSY [phone] PCP - General Internal Medicine 04/11/24 Additional Source Comments The information contained in this document represents components of the legal health record. It is not the complete legal health record.[facility]
--- OUTSIDE RECORDS SUMMARY | 2024-07-18 10:58 | XMS_ITS ---
Author Organization [facility] Address [address] [place], [place] [address] Care Team Providers Care Sustain Engineer Name Role Phone NEO JOHNSON Primary Care Provider DRA LON FLEMING REASON FOR VISIT DENTAL Social History Sex Assigned At : Social History Observation Description Sex Assigned At Female Encounters Encounter Location Date Provider Diagnosis [facility] [address], [place] [address] 07/20/2023 LON LAWRENCE Plan Of Treatment No Information Progress Notes * DAWIT BEAUCHAMPDOB:1 04/04/1959 (64 yo F)Acc No.[id number]:07/20/2023 Patient:?Moni BEAUCHAMP Provider:Dejah Lawrence :1960???Age:63 Y???Sex:Female D ate:07/20/2023 Address:[address] [place], [place] Pcp:NEO STOVALL Subjective: * Chief Complaints: * ???1. DENTAL. * Medical History:? Objective: Assessment: Plan: * Treatment: * Billing Information: * Visit Code:? * Procedure Codes:? * Electronic signature of DRA LON LAWRENCE , DMD on 07/18/2024 at 10:58 AM BOT Sign off status: Pending Visit Status:?CANCPHONE (Can celled over phone) * Provider:?Dra. Lon Lawrence Date:?0 07/20/2023 Generated for Alli westfall/Christos/eTransmitting on:?07/18/2024 10:58 AM BOT
== END ==
LOC: HO.SL 09:51
PROVIDERS: PCP Internal Medicine; Visit Provider Hospitalist
DX: Z13.89 Encounter for screening for other disorder (principal)

== ENCOUNTER 2024-07-29 14:18 | Outpatient (AMB) | payer OTHER, SELFPAY ==
--- NOTE | 2024-07-29 14:20 | MHC.OFFVIS ---
Vital Signs 07/29/24 14:41 Height 4 ft 11 in Weight 145 lb BMI 29.3 BP 140/70 H Blood Pressure Location Rt brachial Position Sitting Pulse 84 Pulse Source Pulse Oximeter Pulse Oximetry (%) 96 Oxygen Delivery Method Room Air Intake Visit Reasons: [place] screening Intake Note: NEW PATIENT for colo screening, recall. Pt cannot recall where it was done but it was well over 10 years ago. CC; Pt denies any GI sx at this time. Sports Director Required: Yes Sports Director Services: Sports Director Present Sports Director Name: Nikhil Gonzalez3 Accompanied by: Self / Same As Patient Allergies Penicillins Allergy (Intermediate, Verified 05/13/24 13:21) Rash HPI HPI [place] screening: Details: 64 year old? female with past medical history of asthma, ZHEN, hypertension is here today for pre colonoscopy screening.? Patient was sent to us by her PCP.? Patient reports last colonoscopy over 10 years ago. Patient reports that her colonoscopy was normal no polyps detected. Patient does not remember where the procedure was done.? Patient denies any gastrointestinal symptoms in the past or at present.? Denies any personal or family history of gastrointestinal disease, colon polyps, or CRC.? Denies history of difficulty with sedation or anesthesia in the past.? History of sleep apnea using CPAP every night.? Denies any history of cardiac, renal, pulmonary, or hepatic disease.?? No history of infectious? diseases like hepatitis A, B, C, HIV or tuberculosis.? Patient is not on any anticoagulation [facility] Medical History (Updated 07/29/24 @ 14:29 by KATIE Rosario) Skin exam for malignant neoplasm Osteopenia HTN (hypertension) ZHEN (obstructive sleep apnea) Asthma Allergies Surgical History (Updated 07/29/24 @ 14:29 by KATIE Rosario) S/P iridectomy Hx of tonsillectomy H/O: hysterectomy Hx of cholecystectomy Family History (Updated 07/29/24 @ 14:30 by KATIE Rosario) Father Leukemia Mother HTN (hypertension) CKD (chronic kidney disease) Thyroid cancer Alzheimer dementia Review of Systems Const Denies weight gain and Denies weight loss ENT Reports no additional complaints, Denies dysphagia and Denies odynophagia Card Reports no additional complaints Resp Reports no additional complaints GI Denies abdominal pain, Denies belching, Denies melena, Denies bloating, Denies change in bowel habits, Denies dysphagia, Denies excessive flatus, Denies dyspepsia, Denies heartburn, Denies diarrhea, Denies loose stools, Denies nausea, Denies odynophagia and Denies vomiting Musc Reports no additional complaints Neuro Reports no additional complaints Psych Reports no additional complaints Endo Reports no additional complaints Physical Exam Vital Signs: Last Vital Signs Pulse 84 07/29/24 14:41 BP 140/70 H 07/29/24 14:41 Pulse Ox 96 07/29/24 14:41 Oxygen Delivery Method Room Air 07/29/24 14:41 BMI result Body Mass Index 29.3 Const General: healthy appearing, no acute distress and well developed Nutritional Appearance: well nourished Orientation/consciousness: patient oriented x3 Resp Effort & Inspection: normal respiratory effort, able to speak in complete sentences, no tracheal deviation and symmetric chest movement Auscultation: clear to auscultation bilaterally Cardio Rate: regular rate GI Inspection: Yes normal to inspection and No distended Palpation (GI): Soft to palpation, not firm, nontender and No hepatosplenomegaly present Auscultation: normal bowel sounds General: Yes no CVA tenderness Back/Spine/Pelvis Back: no CVA tenderness Skin General skin exam: elasticity normal, turgor normal and dry skin Neuro General: patient oriented x3 Psych Appearance: grossly normal Mental Status: mental status grossly normal Assessment & Plan Assessment & Plan (1) Positive colorectal cancer screening using Cologuard test: Code(s): R19.5 - Other fecal abnormalities Plan Patient denies any GI, cardiac or respiratory symptoms.? Denies any issues with anesthesia in the past.? Denies any history of sleep apnea.? No history infectious diseases in the past or present.? Not on any anticoagulation therapy.? No family or personal history of colon cancer or polyps.? Patient denies melena, hematochezia, unintentional weight loss or ribbon like stools.? Discussed at length the pre-procedure,? prep, diet & medications as well as what to expect prior, during and after the procedure.?? Stressed the importance of good bowel prep.? Recommended the use of Vaseline or Calmoseptine OTC & baby wipes with bowel movements to promote comfort.? ?Patient verbalizes understanding and agrees to plan of care.? She was given the opportunity to ask questions and all questions answered.? We will see her after the procedure.? Medications: New bisacodyl (Dulcolax (bisacodyl)) take 4 tabs at noon the day before your colonoscopy 20 mg (4 x 5 mg) PO ONCE 1 day 4 tabs 0RF constipation Z12.11 - Encounter for screening for malignant neoplasm of colon polyethylene glycol 3350 (Miralax) As directed by gastroenterology department at [facility] 238 grams PO ONCE 238 grams 0RF Z12.11 - Encounter for screening for malignant neoplasm of colon Coding Level of Care Code New Pt Level 3 (89598) Diagnoses Positive colorectal cancer screening using Cologuard test R19.5 Time Spent (min) 40 Comment 30 minutes spent with patient and additional 10 minutes spent reviewing her records
--- OUTSIDE RECORDS SUMMARY | 2024-07-29 14:21 | XMS_ITS | Clinical Summary ---
Author Organization [facility] lin Address [address] [place] [address] Care Team Providers Care Hand Cementer Name Role Phone Unavailable Primary Care Provider [...] yrs or above (or HM Modifier)([facility]) 1961 Hepatitis C Virus Infection in Adolescents and Adults: Screening (or Modifier) ([facility]) 1979 SDNE Screening Reminder: Scarlett faustin for all adults ([facility]) 1979 Tobacco Smoking Cessation: i n Adults excluding Women: Behavioral and Pharmacotherapy Interventions ([facility]) 1979 DTaP/Tdap/Td Vaccines ([facility]) (1 - Tdap) 02/03/1980 Cervical Cancer Screenin 1-65 yrs of age (or Modifier) 1982 Cervical Cancer Screening: P ap every 3 yrs pts age 21-65 1982 Cervical Cancer: Pap Screeni ng with Modifier timing ([facility]) 1982 Cervical Cancer: hrHPV alone or with cotesting Pap for Pts 30-65yrs screening every 5yrs ([facility]) 1982 Colorectal Cancer Screening 45 -75 Yrs (or HM Modifier ) 2006 Colorectal Cancer: FLEXIBLE SIGMOIDOSCOPY Screening every 5 yrs 2006 Colorectal Cancer: Fecal Imm unochemical Test (FIT) Annually [facility] 2006 Colorectal Cancer: High-sens itivity gFOBT Screening Annually [facility] 2006 Colorectal Cancer: Stool Col oguard Screening every 3 yrs 2006 Colorectal Cancer:CT Colonography Screening every 5 yr s 2006 Lipid Screening: Every 5 yrs for Women aged 45+ (or HM Modifier) ([facility]) 2007 Breast Cancer: Screening Scarlett ually age 50-74 yrs (or HM Modifier)([facility]) 2011 Pneumococcal Vaccination Scr eening: Patients 50+ yrs of age ([facility]) (1 of 1 - PCV) 2011 Zoster/Shingles Vaccine Seri es Screening: Adults aged 18+ yrs (or HM Modifiers)([facility]) (1 of 2) 2011 COVID-19 Vaccine Screening: Initial Series and Booster Status ([facility]) (2023- season) 2023 Flu Vaccination: Yearly for ages 18mos through 64 years (or Modifier)([facility]) 10/14/2024 RSV Vaccines (1 - 1-dose 75+ series) 02/03/2036 Medical Devices Not on file
--- OUTSIDE RECORDS SUMMARY | 2024-07-29 14:21 | XMS_ITS ---
Author Organization [facility] Address [address] [place], [place] [id number] Care Team Providers Care Vault Custodian Name Role Phone NEO JOHNSON Primary Care Provider DRA LON FLEMING REASON FOR VISIT DENTAL Social History Sex Assigned At : Social History Observation Description Sex Assigned At Female Encounters Encounter Location Date Provider Diagnosis [facility] [address], [place] [id number] 07/20/2023 LON LAWRENCE Plan Of Treatment No Information Progress Notes * DAWIT BEAUCHAMPDOB:1 04/04/1959 (64 yo F)Acc No.[id number]:07/20/2023 Patient:?Moni BEAUCHAMP Provider:Dejah Lawrence :1960???Age:63 Y???Sex:Female D ate:07/20/2023 Address[address] [place], [place] Pcp:NEO STOVALL Subjective: * Chief Complaints: * ???1. DENTAL. * Medical History:? Objective: Assessment: Plan: * Treatment: * Billing Information: * Visit Code:? * Procedure Codes:? * Electronic signature of DRA LON LAWRENCE , DMD on 07/29/2024 at 02:21 PM BOT Sign off status: Pending Visit Status:?CANCPHONE (Can celled over phone) * Provider:?Dra. Lon Lawrence Date:?0 07/20/2023 Generated for Alli westfall/Christos/eTransmitting on:?07/29/2024 02:21 PM BOT
--- OUTSIDE RECORDS SUMMARY | 2024-07-29 14:21 | XMS_ITS | Patient Health Record ---
Author Organization [facility] [place] Address [address], [place] [id number] Care Team Providers Care Lidar Scientist Name Role Phone NEO JOHNSON Primary Care Provider Allergies Allergen (clinical drug ingredient) Drug/Non Drug [...] a day for 7 days 10/26/2020 Unknown Bjrvujif-Bspysaout-GU [id number] 4 drops into affected ear Otic Three times a day for 7 days 04/16/2022 Unknown Immunizations Vaccine Route Administration Date Status Comme nts COVID-19 Pfizer Unknown 05/28/2020 Administered PACIENT E SEADMINISTRO 1RA DOSIS DEVACUNA PFIZER , CONTRA EL COVID 19 ,SEDIGITALIZA EVIDENCIA , MYA [id number] Influenza (split), 3 yrs and above Unknown [...] an other tobacco user? No Section Notes: SAUL R N [id number] BRENDA MERINO 04/16/2022 0 7:22:56 PM BOT > -CHANDRAKANT RAY [id number]. RENEE STALLINGS 88620 -CHANDRAKANT RAY 65320. SAUL STALLINGS 81717 Katarzyna STOVALL BSN [id number] PILE OPERATOR [facility] [address] Katarzyna STOVALL BSN [id number] SAUL R N 00553 SAUL R N 91493 SAUL R N 21557 [place]NIY R N [address]5467 SAUL R N 23357 [place] R N [address] [place] [address]. Marisol DANIELSN 74734 09/09/2017 FedeRN 61371 . Marisol MERINO RNRAIN [id number] BY Marisol MERINO RNBSN BY Marisol MERINO RNBSN BY Marisol MERINO RNBSN BY Marisol MERINO RNBSN BY Marisol MERINO RNBSN Problems Problem Type SNOMED Code ICD Code Onset Dates Problem Status W/U Status Risk Notes Problem 93306689 PTSD (post-traum atic stress disorder) (F43.10) Active confirmed Problem Generalized obesity (281702792) Obesity (BMI 30-39.9) (E66.9) Active confirmed Problem Mammographic breast density (724798258) Breast density (R92.2) Active confirmed Problem Acute bronchitis (80942666) Acute bronchitis (J20.9) Active confirmed Problem 89946949 Coagulopathy (D68.9) Active confirmed Problem 59062517 Benign hypertens andrae heart disease without congestive heart failure (I11.9) Active confirmed Problem 98733285 Heart palpitatio ns (R00.2) Active confirmed Problem 456104105 Abnormal mammogr am (R92.8) Active confirmed Problem Mammographic calcification of breast (859056543) Breast calcifications on mammogram (R92.1) Active confirmed Problem 03508166 Mass of right br east (N63) Active confirmed Problem 953025219 Overweight (BMI 25.0-29.9) (E66.3) Active confirmed Problem 82480259 Obstructive slee p apnea (G47.33) Active confirmed Problem Pain in eye (77522140) Left eye pain (H57.12) Active confirmed Problem 34089747 Sacral pain (M53.3) Active confirmed Problem 155008766 Mild intermitten t asthma without complication (J45.20) Active confirmed Problem 53361719 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) Active confirmed Problem 613654185 History of hysterectomy (Z90.710) Active confirmed Problem 324469685 Moderate persist ent asthma with acute exacerbation (J45.41) Active confirmed Problem Hypercholesterolemia (18365405) Hypercholesterolemia (E78.00) Active confirmed Problem 439662906 Oral phase dysph agia (R13.11) Active confirmed Problem 75168232082543029 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) Active confirmed Problem Hip DXA scan result osteopenic (179566911) 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) Active confirmed Problem Chronic obstructive pulmonary disease (56086349) 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 Problem 616097722 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) Active confirmed Problem Requires vaccination (329977681) COVID-19 vaccine administered (Z23) Active confirmed Problem 557303047227614199 History of CO VID-19 (Z86.16) Active confirmed Problem 382850300 COVID (U07.1) Active confirmed Problem 920576541 Post COVID-19 condition, 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) Active confirmed Problem 536248517 SOB (shortness o f breath) (R06.02) Active confirmed Problem 85158882 Bronchitis (J40) Active confirmed Problem Glaucoma (69493154) Glaucoma (H40.9) Active con firmed Problem Memory impairment (885252308) Memory loss (R41.3) Active confirmed Problem 07485810 Anxiety (F41.9) Active confirmed Problem Lymphadenopathy (49720908) Enlarged lymph nodes, unspecified (R59.9) Active confirmed Problem 557467128 Mild intermitten t asthma with status asthmaticus (J45.22) Active confirmed Problem Conjunctival hyperemia of left eye (365756039065776) Conjunctival hyperemia, left eye (H11.432) Active confirmed Problem Disorder of bone (93574217) Disorder of bone, unspecified (M89.9) Active confirmed Problem Vitamin D deficiency (22535257) Vitamin D deficiency, unspecified (E55.9) Active confirmed Problem Abnormal findings on diagnostic imaging of breast (261924806) Other abnormal and inconclusive findings on diagnostic imaging of breast (R92.8) Active confirmed Problem 86484945 Age-related osteoporosis without current pathological fracture (M81.0) Active confirmed Plan Of Treatment Pending Test [...] Coverage End Date [employer] [address] [address] [place], [place] [id number] DAWIT BEAUCHAMP Self - patient is the insured 1 [employer] [address] [address] [place], [place] [id number] DAWIT BEAUCHAMP Self - patient is [...] Hospitalization History Reason Date(Month/Year) BRONQUITIS 12/2015 KACEY CESAREAS X 2
[2024-07-29 14:41] VITALS: BP 140/70; PULSE 84; O2SAT 96; BMI 29.3
== END 2024-07-29 15:07 | disposition home or self-care (01) ==
LOC: HO.HGI 14:18
PROVIDERS: PCP Internal Medicine; Visit Provider Nurse Practitioner Family
DX: R19.5 Other fecal abnormalities (principal)
CPT/HCPCS: 99203

== ENCOUNTER → 2024-07-29 14:18 | Outpatient (BNVA) | payer OTHER, SELFPAY | PROVIDERS: PCP Internal Medicine; Visit Provider Nurse Practitioner Family | DX: R19.5 Other fecal abnormalities (principal) | CPT/HCPCS: 99202 ==

== ENCOUNTER 2024-08-19 14:01 | Outpatient (AMB) | payer OTHER, SELFPAY ==
--- OUTSIDE RECORDS SUMMARY | 2024-08-19 14:03 | XMS_ITS | Clinical Summary ---
Author Organization [facility] lin Address [address] [place] [address] Care Team Providers Care Office Coordinator Receptionist Name Role Phone Unavailable Primary Care Provider [...] Adults 18 yrs or above (or HM Modifier)([facility]) 1979 Hepatitis C Virus Infection in Adolescents and Adults: Screening (or Modifier) ([facility]) 1979 SDHI Screening Reminder: Scarlett faustin for all adults ([facility]) 1979 Tobacco Smoking Cessation: i n Adults excluding Women: Behavioral and Pharmacotherapy Interventions ([facility]) 1979 DTaP/Tdap/Td Vaccines ([facility]) (1 - Tdap) 02/03/1980 Cervical Cancer Screenin 1-65 yrs of age (or Modifier) 1982 Cervical Cancer Screening: P ap every 3 yrs pts age 21-65 1982 Cervical Cancer: Pap Screeni ng with Modifier timing ([facility]) 1982 Cervical Cancer: hrHPV alone or with cotesting Pap for Pts 30-65yrs screening every 5yrs ([facility]) 1982 Colorectal Cancer Screening 45 -75 Yrs (or HM Modifier ) 2006 Colorectal Cancer: FLEXIBLE SIGMOIDOSCOPY Screening every 5 yrs 2006 Colorectal Cancer: Fecal Imm unochemical Test (FIT) Annually [facility] 2006 Colorectal Cancer: High-sens itivity gFOBT Screening Annually [facility] 2006 Colorectal Cancer: Stool Col oguard Screening every 3 yrs 2006 Colorectal Cancer:CT Colonography Screening every 5 yr s 2006 Breast Cancer: Screening Scarlett ramin age 50-74 yrs (or HM Modifier)([facility]) 2011 Pneumococcal Vaccination Scr eening: Patients 50+ yrs of age ([facility]) (1 of 1 - PCV) 2011 Zoster/Shingles Vaccine Seri es Screening: Adults aged 18+ yrs (or HM Modifiers)([facility]) (1 of 2) 2011 COVID-19 Vaccine Screening: Initial Series and Booster Status ([facility]) (2023- season) 2023 Flu Vaccination: Yearly for ages 18mos through 64 years (or Modifier)([facility]) 10/14/2024 RSV Vaccines (1 - 1-dose 75+ series) 02/03/2036 Medical Devices Not on file
[2024-08-19 14:13] VITALS: BP 134/68; PULSE 85; O2SAT 98; BMI 29.6
--- NOTE | 2024-08-19 14:13 | A.OFFVIS_ITS ---
Vital Signs 08/19/24 14:13 Height 4 ft 11 in Weight 146 lb 9.718 oz BMI 29.6 BP 134/68 Blood Pressure Location Lt brachial Position Sitting Pulse 85 Pulse Source Pulse Oximeter Pulse Oximetry (%) 98 Oxygen Delivery Method Room Air Intake Visit Reasons: COPD/Asthma Accompanied by: Self / Same As Patient Allergies Penicillins Allergy (Intermediate, Verified 08/19/24 14:16) Rash HPI Comments Details: The patient is a 64 year woman with a known history of ZHEN on CPAP in addition to asthma. Apparently she moved from [place] to [facility] recently now she is getting established. The patient has been diagnosed with sleep apnea for many years. She does have an eye bruits machine that she uses every night. The therapy has been affecting beneficial. Although she has not been able to get any supplies from [facility] because she is no longer active since she moved to the [facility]. She needs to get we diagnosed with a repeat sleep study in order to get her reactivated with the [facility]. The patient will have a home sleep study at this point. In the meantime she has had issues with her asthma. Ever since she moved to [facility] she is having hard time with worsening shortness of breath wheezing and requiring multiple urgent care visits. Typically she goes to an urgent care and will bring him worse close to her home. Back in March she was found to be significantly he is wheezing there and short of breath and they transferred her over to [facility] where she was evaluated and treated. She did not want to stays in therefore they discharged her. She continues on the Spiriva and she also has a nebulizer and albuterol medication. She is not on a combination inhaler this time. Her med sure she has tried them in the past. But will go ahead and maximize her respiratory therapy by changing her to Trelegy. The patient also has a rescue medication. In view of her multiple exacerbations will go ahead and request blood work to assess her triggers. Will assess her allergies in addition to her immune system. Will have her get pulmonary function studies and have her come back for further evaluation. When she returns she will bring her CPAP so I can download it and adjust it. 08/19/2024 the patient is here for pulmonary follow-up visit. Overall the nitoe nt has been doing well. She continues use her CPAP every night. CPAP therapy has been affecting beneficial. Unfortunately she does not get supplies from the [facility] because we are awaiting her sleep study. She has recently did have the sleep study but it did not safe enough information. Therefore she is going to have to be rescheduled. In the meantime I did have an N30 I am asked for her to try. This will provide her a new mask and also will provide her a different type of mask to see if this is a better option for her. Her IVs machine is working very effectively and she does have good eye seems to the therapy. From a respiratory status she is doing okay. She did have PFTs demonstrating normal lung Mechanics. Blood work also reassuring. Overall the patient is doing well. Will plan to add an addendum to this note once we have the sleep study in order to get supplies delivered to her. [facility] Medical History (Updated 07/29/24 @ 14:29 by KATIE Rosario) Skin exam for malignant neoplasm Osteopenia HTN (hypertension) ZHEN (obstructive sleep apnea) Asthma Allergies Surgical History (Updated 07/29/24 @ 14:29 by KATIE Rosario) S/P iridectomy Hx of tonsillectomy H/O: hysterectomy Hx of cholecystectomy Family History (Updated 07/29/24 @ 14:30 by KATIE Rosario) Father Leukemia Mother HTN (hypertension) CKD (chronic kidney disease) Thyroid cancer Alzheimer dementia Social History (Updated 08/19/24 @ 14:16 by Jeimy Forbes [facility]) Patient Tobacco Use Status: Never used Tobacco Review of Systems Const Denies weight gain and Denies weight loss ENT Reports no additional complaints, Denies dysphagia and Denies odynophagia Card Reports no additional complaints Resp Reports no additional complaints GI Denies abdominal pain, Denies belching, Denies melena, Denies bloating, Denies change in bowel habits, Denies dysphagia, Denies excessive flatus, Denies dyspepsia, Denies heartburn, Denies diarrhea, Denies loose stools, Denies nausea, Denies odynophagia and Denies vomiting Musc Reports no additional complaints Neuro Reports no additional complaints Psych Reports no additional complaints Endo Reports no additional complaints Physical Exam Vital Signs: Last Vital Signs Pulse 85 08/19/24 14:13 BP 134/68 08/19/24 14:13 Pulse Ox 98 08/19/24 14:13 Oxygen Delivery Method Room Air 08/19/24 14:13 BMI result Body Mass Index 29.6 Const General: comfortable HEENT Head: Yes normocephalic Neck Neck: Yes normal visual inspection Chest Chest palpation & inspection: normal inspection of the chest Resp Effort & Inspection: normal respiratory effort Auscultation: no wheezes and diminished lung sounds Cardio Heart sounds: S1 normal heart sound present and S2 normal heart sound present GI Palpation (GI): Soft to palpation Skin General skin exam: no rashes or lesions noted Extrem General: Yes no clubbing, cyanosis or edema Assessment & Plan Assessment & Plan (1) Asthma: Code(s): J45.909 - Unspecified asthma, uncomplicated Category: Medical Qualifiers: Asthma complication type: uncomplicated Asthma persistence: persistent Asthma severity: moderate Qualified Code(s): J45.40 - Moderate persistent asthma, uncomplicated (2) ZHEN (obstructive sleep apnea): Code(s): G47.33 - Obstructive sleep apnea (adult) (pediatric) Category: Medical Plan continue Trelegy SOCORRO as needed Duoneb as needed Continue APAP (ibreeze) Needs a repeat study to requalify and order supplies. Will trial N30i Home PSG has to be rescheduled due to inefficient data F/U 4 months Coding Level of Care Code Est Pt Level 4 (03468) Diagnoses Moderate persistent asthma without complication J45.40 Asthma complication type: uncomplicated Asthma persistence: persistent Asthma severity: moderate ZHEN (obstructive sleep apnea) G47.33 Time Spent (min) 16
== END 2024-08-19 14:37 | disposition home or self-care (01) ==
LOC: HO.HPS 14:02
PROVIDERS: PCP Internal Medicine; Visit Provider Hospitalist
DX: J45.40 Moderate persistent asthma, uncomplicated (principal); G47.33 Obstructive sleep apnea (adult) (pediatric)
CPT/HCPCS: 99214

== ENCOUNTER → 2024-08-19 14:01 | Outpatient (BNVA) | payer OTHER, SELFPAY | PROVIDERS: PCP Internal Medicine; Visit Provider Hospitalist | DX: J45.40 Moderate persistent asthma, uncomplicated (principal); T78.40XA Allergy, unspecified, initial encounter; J44.9 Chronic obstructive pulmonary disease, unspecified; G47.33 Obstructive sleep apnea (adult) (pediatric) | CPT/HCPCS: 99212 ==

== ENCOUNTER 2025-01-20 14:20 | Outpatient (AMB) | payer OTHER, SELFPAY ==
[2025-01-20 14:28] VITALS: BP 138/72; PULSE 83; O2SAT 97; BMI 29.3
--- NOTE | 2025-01-20 14:28 | A.OFFVIS_ITS ---
Vital Signs 01/20/25 14:28 Height 4 ft 11 in Weight 145 lb BMI 29.3 BP 138/72 Blood Pressure Location Lt brachial Position Sitting Pulse 83 Pulse Source Pulse Oximeter Pulse Oximetry (%) 97 Oxygen Delivery Method Room Air Intake Visit Reasons: COPD/Asthma Allergies Penicillins Allergy (Intermediate, Verified 01/20/25 14:33) Rash HPI Comments Details: The patient is a 64 year woman with a known history of ZHEN on CPAP in addition to asthma. Apparently she moved from [place] to [facility] recently now she is getting established. The patient has been diagnosed with sleep apnea for many years. She does have an eye bruits machine that she uses every night. The therapy has been affecting beneficial. Although she has not been able to get any supplies from [employer] because she is no longer active since she moved to the [facility]. She needs to get we diagnosed with a repeat sleep study in order to get her reactivated with the [employer]. The patient will have a home sleep study at this point. In the meantime she has had issues with her asthma. Ever since she moved to [facility] she is having hard time with worsening shortness of breath wheezing and requiring multiple urgent care visits. Typically she goes to an urgent care and will bring him worse close to her home. Back in March she was found to be significantly he is wheezing there and short of breath and they transferred her over to [facility] where she was evaluated and treated. She did not want to stays in therefore they discharged her. She continues on the Spiriva and she also has a nebulizer and albuterol medication. She is not on a combination inhaler this time. Her med sure she has tried them in the past. But will go ahead and maximize her respiratory therapy by changing her to Trelegy. The patient also has a rescue medication. In view of her multiple exacerbations will go ahead and request blood work to assess her triggers. Will assess her allergies in addition to her immune system. Will have her get pulmonary function studies and have her come back for further evaluation. When she returns she will bring her CPAP so I can download it and adjust it. 08/19/2024 the patient is here for pulmonary follow-up visit. Overall the patient has been doing well. She continues use her CPAP every night. CPAP t herapy has been affecting beneficial. Unfortunately she does not get supplies from the [employer] because we are awaiting her sleep study. She has recently did have the sleep study but it did not safe enough information. Therefore she is going to have to be rescheduled. In the meantime I did have an N30 I am asked for her to try. This will provide her a new mask and also will provide her a different type of mask to see if this is a better option for her. Her IVs machine is working very effectively and she does have good eye seems to the therapy. From a respiratory status she is doing okay. She did have PFTs demonstrating normal lung Mechanics. Blood work also reassuring. Overall the patient is doing well. Will plan to add an addendum to this note once we have the sleep study in order to get supplies delivered to her. 01/20/2025 the patient is here for pulmonary follow-up visit. [facility] in December when she developed COVID. She went to an urgent care. She was placed on Paxlovid and also giving cough medication. Unfortunately she continues to have a cough chest congestion. Moderate severity. Chest tightness. She has been using her respiratory inhalers as prescribed. She is still struggling. The patient right now still has some wheezing and likely has a component of bacterial bronchitis postviral. Will go ahead and start her on doxycycline and also prednisone. The patient also has not able to redo her sleep study. The patient has underlying sleep apnea. However, the 1st sleep study was not sufficient and now we have to repeat it. Now she is going to be moving elsewhere so she is going to have to start the process once she gets situated in her new home. Also to note after having COVID the patient has been noticing some episodes of tachycardia. She does have a smart watch and it demonstrates the heart rate has gone up to about 125 beats per minute. They can happen inspiratory moment. This may be related to post COVID. She will get an EKG and also has a cardiology evaluation sometime in the end of January. If she has any worsening symptoms she is to seek medical advice. COUNT INCLUDES THE [facility] Medical History (Updated 01/20/25 @ 14:49 by Chapin Sarah MD) Palpitations Skin exam for malignant neoplasm Osteopenia HTN (hypertension) ZHEN (obstructive sleep apnea) Asthma Allergies Surgical History (Updated 07/29/24 @ 14:29 by Obinna Tang [facility]) S/P iridectomy Hx of tonsillectomy H/O: hysterectomy Hx of cholecystectomy Family History (Updated 07/29/24 @ 14:30 by KATIE Rosario) Father Leukemia Mother HTN (hypertension) CKD (chronic kidney disease) Thyroid cancer Alzheimer dementia Social History (Updated 08/19/24 @ 14:16 by Jeimy Forbes [facility]) Patient Tobacco Use Status: Never used Tobacco Review of Systems Const Denies weight gain and Denies weight loss ENT Reports no additional complaints, Denies dysphagia and Denies odynophagia Card Reports no additional complaints Resp Reports no additional complaints GI Denies abdominal pain, Denies belching, Denies melena, Denies bloating, Denies change in bowel habits, Denies dysphagia, Denies excessive flatus, Denies dyspepsia, Denies heartburn, Denies diarrhea, Denies loose stools, Denies nausea, Denies odynophagia and Denies vomiting Musc Reports no additional complaints Neuro Reports no additional complaints Psych Reports no additional complaints Endo Reports no additional complaints Physical Exam Vital Signs: Last Vital Signs Pulse 83 01/20/25 14:28 BP 138/72 01/20/25 14:28 Pulse Ox 97 01/20/25 14:28 Oxygen Delivery Method Room Air 01/20/25 14:28 BMI result Body Mass Index 29.3 Const General: comfortable HEENT Head: Yes normocephalic Neck Neck: Yes normal visual inspection Chest Chest palpation & inspection: normal inspection of the chest Resp Effort & Inspection: normal respiratory effort Auscultation: no wheezes and diminished lung sounds Cardio Heart sounds: S1 normal heart sound present and S2 normal heart sound present GI Palpation (GI): Soft to palpation Skin General skin exam: no rashes or lesions noted Extrem General: Yes no clubbing, cyanosis or edema Assessment & Plan Assessment & Plan (1) Asthma: Code(s): J45.909 - Unspecified asthma, uncomplicated Category: Medical Qualifiers: Asthma complication type: uncomplicated Asthma persistence: persistent Asthma severity: moderate Qualified Code(s): J45.40 - Moderate persistent asthma, uncomplicated (2) ZHEN (obstructive sleep apnea): Code(s): G47.33 - Obstructive sleep apnea (adult) (pediatric) Category: Medical (3) Palpitations: Code(s): R00.2 - Palpitations Category: Medical Plan continue Trelegy SOCORRO as needed start Doxycycline for post viral bacterial bronchitis EKG, will see Cardiology re: palpitations Continue APAP (ibreeze) Needs a repeat study to requalify and order supplies. Will trial N30i Home PSG has to be rescheduled due to inefficient data F/U 4 months Orders: Orders ECG 12 lead EKG 01/20/25 R00.2 - Palpitations Medications: New levalbuterol HCl 1.25 mg (3 mL) inhalation BID 180 mL 5RF 30 days J44.9 - Chronic obstructive pulmonary disease, unspecified RSVPreF3 antigen-AS01E (PF) 120 mcg/0.5 mL 0.5 mL IM ONCE 1 ea 0RF J45.40 - Moderate persistent asthma, uncomplicated prednisone PO daily; Take 2 tabs daily x 5 days, then 1 tablet daily x 5 days 15 tabs 0RF 10 days doxycycline hyclate 100 mg PO BID 20 caps 0RF 10 days Coding Level of Care Code Est Pt Level 4 (76327) Diagnoses Moderate persistent asthma without complication J45.40 Asthma complication type: uncomplicated Asthma persistence: persistent Asthma severity: moderate ZHEN (obstructive sleep apnea) G47.33 Palpitations R00.2 Time Spent (min) 16
--- OUTSIDE RECORDS SUMMARY | 2025-01-20 16:04 | XMS_ITS | Clinical Summary ---
Author Organization [facility] Address [address] [place] [phone] Phone Care Team Providers Care Security Ambassador Name Role Phone Debra Lew MD Primary Care Provider Allergies Active Allergy Reactions Criticality Noted Date Comments Penicillins 04/11/2024 Medications REFRESH TEARS 0.5 % Drop INSTILL 1 DROP IN BOTH EYES FOUR TIMES A DAY 4 Active montelukast (SINGULAIR) 10 mg tablet Take 1 tablet by mouth every morning. 4 Active simvastatin (ZOCOR) 20 MG tablet Take 20 mg by mouth nightly at bedtime. at bedtime. 4 Active triamcinolone acetonide 0.1 % cream PLEASE SEE ATTACHED FOR DETAILED DIRECTIONS 4 Active albuterol 90 mcg/actuation inhaler Inhale 2 puffs into the lungs every 6 (six) hours as needed for wheezing. Active dilTIAZem (CARDIZEM CD) 120 MG 24 hr capsule TAKE 2 CAPSULES BY MOUTH DAILY. 180 capsule 3 5 Active Active Problems Problem Noted Date Diagnosed [...] reason why I am not starting metoprolol Social History Tobacco Use Types Packs/Day Years [...] with a working camera? Not on file Comments Unknown Sex and Gender Information Value Date Recorded Sex Assigned at Not on file Legal Sex Female 2:54 PM EDT Gender Identity Not on file [...] Care Team (Late st Contact Info) Description 02/03/2025 12:30 PM EST Office Visit [facility] [address] [place] [address] [address] Floor, [address] [place] [address] Jigna Delgado, MALU [address] [facility], [address] [place] [id number] [address] [place] [address] [email or web address] Health Maintenance Due Date Last Done Comments [...] FOBT 2006 SIGMOIDOSCOPY 2006 VIRTUAL COLONOSCOPY 2006 RSV VACCINE (1 - Risk 50-74 years 1-dose series) 2011 ZOSTER VACCINES (1 of 2) 2011 INFLUENZA VACCINE (#1) 2024 COVID-19 VACCINE (1 - 2024-2 6 season) 2024 SMOKING STATUS SCREENING (On ce After 26 Yrs) Completed 06/24/2024 HEPATITIS A VACCINES Aged Out No long er eligible based on patient's age to complete this topic HIB VACCINES Aged Out No longer eligi ble based on patient's age to complete this topic MENINGOCOCCAL VACCINES (ACWY) Aged Out No longer eligible based on patient's age to complete this topic MENINGOCOCCAL VACCINES (B) Aged Out N o longer eligible based on patient's age to complete this topic Medical Devices Not on file Insurance [facility] NON NSPG PCP [place] [facility] NON NSPG PCP [facility] [employer] NON NSPG PCP [place] [employer] CONNE[employer]ARE [place] [phone] [employer] NON NSPG PCP S[place] [employer] CONNECTOR[employer]ARE [place] [address] [employer] NON NSPG PCP S[place] [phone] [employer] NON NSPG [facility]CP [facility] Care Teams Security Ambassador Relationship Specialty Start Date End Date Debra Lew MD [address] [place] [address] [place] [phone] PCP - General Internal Medicine 04/11/24 Additional Source Comments The information contained in this document represents components of the legal health record. It is not the complete legal health record.[facility]
== END 2025-01-20 15:02 | disposition home or self-care (01) ==
PROVIDERS: PCP Internal Medicine; Visit Provider Hospitalist
DX: J45.40 Moderate persistent asthma, uncomplicated (principal); G47.33 Obstructive sleep apnea (adult) (pediatric); R00.2 Palpitations
CPT/HCPCS: 99214

== ENCOUNTER → 2025-01-20 14:20 | Outpatient (BNVA) | payer SELFPAY | PROVIDERS: PCP Internal Medicine; Visit Provider Hospitalist | DX: J45.40 Moderate persistent asthma, uncomplicated (principal); G47.33 Obstructive sleep apnea (adult) (pediatric); T78.40XA Allergy, unspecified, initial encounter; R00.2 Palpitations; Z99.89 Dependence on other enabling machines and devices; Z86.16 Personal history of COVID-19 | CPT/HCPCS: 99212 ==